=== PATIENT | male | born 1985 | race Caucasian/White ===

== ENCOUNTER → 2017-02-05 | Outpatient (CLI) | payer OTHER ==
[2017-02-05 08:15] LABS: ALT 36 U/L (21-72); AST 22 U/L (17-59); Alkaline Phosphatase 47 U/L (38-126); Anion Gap 9 mmol/L; Blood Urea Nitrogen 14 mg/dL (9-20); Calcium 8.8 mg/dL (8.4-10.2); Carbon Dioxide 28 mmol/L (22-30); Chloride 104 mmol/L (98-107); Cholesterol 142 mg/dL (<200); Glucose 168 mg/dL (74-99); HDL Cholesterol 44 mg/dL (40-60); Non-African American GFR(MDRD) >60 (>60 ml/min/1.73 sqM); Potassium 4.5 mmol/L (3.5-5.1); Sodium 141 mmol/L (137-145); Total Bilirubin 1.8 mg/dL (0.2-1.3); Total Protein 6.6 g/dL (6.3-8.2); Triglycerides 68 mg/dL (<150)
[2017-02-05 15:56] LABS: Urine Creatinine 94.9 mg/dL
== END | disposition home or self-care (01) ==
LOC: LABWHC1 07:25
PROVIDERS: ATTEND Internal Medicine Endocrinology, Diabetes & Metabolism
DX: E10.65 Type 1 diabetes mellitus with hyperglycemia (principal)
CPT/HCPCS: 36415; 80053; 80061; 82043; 82570

== ENCOUNTER → 2017-05-26 | Outpatient (CLI) | payer OTHER ==
[2017-05-26 08:25] LABS: ALT 41 U/L (21-72); AST 25 U/L (17-59); Alkaline Phosphatase 57 U/L (38-126); Anion Gap 9 mmol/L; Blood Urea Nitrogen 15 mg/dL (9-20); Carbon Dioxide 26 mmol/L (22-30); Chloride 104 mmol/L (98-107); Cholesterol 139 mg/dL (<200); Glucose 287 mg/dL (74-99); HDL Cholesterol 47 mg/dL (40-60); Non-African American GFR(MDRD) >60 (>60 ml/min/1.73 sqM); Potassium 5.3 mmol/L (3.5-5.1); Sodium 139 mmol/L (137-145); Total Bilirubin 1.7 mg/dL (0.2-1.3); Total Protein 6.8 g/dL (6.3-8.2)
[2017-05-26 12:03] LABS: Hemoglobin A1C 7.6 % (4.2-6.1)
[2017-05-26 16:12] LABS: Urine Creatinine 66.3 mg/dL
== END | disposition home or self-care (01) ==
LOC: LABWHC1 07:41
PROVIDERS: ATTEND Internal Medicine Endocrinology, Diabetes & Metabolism
DX: E55.9 Vitamin D deficiency, unspecified (principal); E53.9 Vitamin B deficiency, unspecified; E10.65 Type 1 diabetes mellitus with hyperglycemia
CPT/HCPCS: 36415; 80053; 80061; 82043; 82306; 82570; 82607; 83036

== ENCOUNTER → 2017-08-19 | Outpatient (CLI) | payer OTHER ==
--- NOTE | 2017-08-19 13:02 | XR ---
EXAMINATION TYPE: XR KUB DATE OF EXAM: 08/19/2017 9:29 AM CLINICAL HISTORY: Kidney calculus per order. Left-sided flank pain per patient. TECHNIQUE: Two Upright KUB images of the abdomen are obtained. COMPARISON: Complete abdominal ultrasound August 04, 2017. FINDINGS: Scattered gas is seen in non-distended small bowel loops. Gas and fecal material is seen in non-distended colon. There is no visceromegaly, pneumoperitoneum, or abnormal calcification apprecia shaun. The lung bases are clear and the osseous structures are intact. IMPRESSION: No definite nephrolithiasis to correlate with recent ultrasound .
== END | disposition home or self-care (01) ==
LOC: RADXRMAIN 09:03
PROVIDERS: ATTEND Urology
DX: N20.0 Calculus of kidney (principal)
CPT/HCPCS: 74018

== ENCOUNTER → 2017-09-01 | Outpatient (CLI) | payer OTHER ==
--- NOTE | 2017-09-01 10:06 | CT ---
EXAMINATION TYPE: CT abdomen pelvis wo con DATE OF EXAM: 09/01/2017 HISTORY: calculus of kidney per order. CT DLP: 539.10 mGycm. Automated Exposure Control for Dose Reduction was Utilized. TECHNIQUE: CT scan of the abdomen and pelvis is performed without oral or IV contrast. COMPARISON: Complete abdominal ultrasound August 04, 2017. KUB x-ray August 19, 2017. FINDINGS: Within the limitations of a non-contrast study, the following observations are made. LUNG BASES: No significant abnormality is appreciated. LIVER/GB: There are several small dependent gallstones or gallbladder sludge on CT less well seen on ultrasound images saved. PANCREAS: No significant abnormality is seen. SPLEEN: Spleen is not enlarged on CT images to correlate with ultrasound. ADRENALS: No significant abnormality is seen. KIDNEYS: No renal calculus is identified in either kidney with particular attention to mid pole left kidney at area of ultrasound concern. No intraluminal calculus in the bladder is seen. BOWEL: Normal-appearing appendix right lower quadrant from cecum is incidentally seen. There is promi nence of fecal material in the distal sigmoid colon and rectum. There is no suspicious small or large bowel dilatation. GENITAL ORGANS: No gross abnormality seen. LYMPH NODES: No greater than 1cm abdominal or pelvic lymph nodes are appreciated. OSSEOUS STRUCTURES: There are bilateral pars defects L5 level without significant spondylolisthesis. OTHER: No significant additional abnormality is seen. IMPRESSION: 1. No renal stones or hydronephrosis is seen bilaterally to account for recent ultrasound findings. 2. Incidental small gallstones and/or gallbladder sludge without CT evidence for acute cholecystitis. 3. Incidental bilateral pars defects L5 level without spondylolisthesis. 4. Incidental moderate rectal fecal stasis without bowel obstruction. 5. No splenomegaly currently.
== END | disposition home or self-care (01) ==
LOC: RADCTMAIN 08:37
PROVIDERS: ATTEND Urology
DX: N20.0 Calculus of kidney (principal); Z88.0 Allergy status to penicillin
CPT/HCPCS: 74176

== ENCOUNTER → 2017-09-20 | Outpatient (CLI) | payer OTHER ==
[2017-09-20 07:59] LABS: Basophils % (A) 1 %; Eosinophils # (A) 0.2 k/uL (0-0.7); Eosinophils % (A) 3 %; HCT 48.6 % (39.0-53.0); HGB 15.7 gm/dL (13.0-17.5); Lymphocytes # (A) 1.7 k/uL (1.0-4.8); Lymphocytes % (A) 31 %; MCH 28.6 pg (25.0-35.0); MCHC 32.2 g/dL (31.0-37.0); MCV 88.8 fL (80.0-100.0); Monocytes # (A) 0.4 k/uL (0-1.0); Monocytes % (A) 7 %; Neutrophils # (A) 3.1 k/uL (1.3-7.7); Neutrophils % (A) 56 %; Platelet Count 184 k/uL (150-450); RBC 5.48 m/uL (4.30-5.90); RDW 12.7 % (11.5-15.5); WBC 5.5 k/uL (3.8-10.6)
[2017-09-20 08:22] LABS: ALT 28 U/L (21-72); AST 19 U/L (17-59); Alkaline Phosphatase 44 U/L (38-126); Anion Gap 11 mmol/L; Blood Urea Nitrogen 14 mg/dL (9-20); Carbon Dioxide 28 mmol/L (22-30); Chloride 104 mmol/L (98-107); Cholesterol 145 mg/dL (<200); Glucose 244 mg/dL (74-99); HDL Cholesterol 44 mg/dL (40-60); LDL Cholesterol,Calculated 87 mg/dL (0-99); Potassium 4.5 mmol/L (3.5-5.1); Sodium 143 mmol/L (137-145); Total Bilirubin 1.7 mg/dL (0.2-1.3); Total Protein 6.4 g/dL (6.3-8.2); Triglycerides 68 mg/dL (<150)
[2017-09-20 08:37] LABS: T4, Free (Free Thyroxine) 1.22 ng/dL (0.78-2.19)
[2017-09-20 13:09] LABS: Hemoglobin A1C 8.2 % (4.0-6.0)
== END | disposition home or self-care (01) ==
LOC: LABWHC1 07:39
PROVIDERS: ATTEND Internal Medicine Geriatric Medicine
DX: Z00.00 Encounter for general adult medical examination without abnormal findings (principal); K21.9 Gastro-esophageal reflux disease without esophagitis; E08.65 Diabetes mellitus due to underlying condition with hyperglycemia; E78.5 Hyperlipidemia, unspecified; E03.9 Hypothyroidism, unspecified
CPT/HCPCS: 36415; 80053; 80061; 82306; 83036; 84439; 84443; 85025

== ENCOUNTER → 2017-12-23 | Outpatient (CLI) | payer OTHER ==
[2017-12-23 08:19] LABS: Basophils % (A) 1 %; Eosinophils # (A) 0.2 k/uL (0-0.7); Eosinophils % (A) 3 %; HCT 47.2 % (39.0-53.0); HGB 15.8 gm/dL (13.0-17.5); Lymphocytes % (A) 35 %; MCH 28.6 pg (25.0-35.0); MCHC 33.4 g/dL (31.0-37.0); MCV 85.5 fL (80.0-100.0); Mean Platelet Volume 6.9; Monocytes # (A) 0.5 k/uL (0-1.0); Monocytes % (A) 8 %; Neutrophils # (A) 2.9 k/uL (1.3-7.7); Neutrophils % (A) 50 %; Platelet Count 180 k/uL (150-450); RBC 5.52 m/uL (4.30-5.90); RDW 13.2 % (11.5-15.5); WBC 5.8 k/uL (3.8-10.6)
[2017-12-23 08:43] LABS: ALT 45 U/L (21-72); AST 38 U/L (17-59); Albumin 4.4 g/dL (3.5-5.0); Alkaline Phosphatase 42 U/L (38-126); Anion Gap 13 mmol/L; Blood Urea Nitrogen 18 mg/dL (9-20); Calcium 9.1 mg/dL (8.4-10.2); Carbon Dioxide 25 mmol/L (22-30); Chloride 104 mmol/L (98-107); Cholesterol 145 mg/dL (<200); Glucose 168 mg/dL (74-99); HDL Cholesterol 39 mg/dL (40-60); LDL Cholesterol,Calculated 94 mg/dL (0-99); Potassium 4.9 mmol/L (3.5-5.1); Sodium 142 mmol/L (137-145); Total Bilirubin 1.2 mg/dL (0.2-1.3); Total Protein 6.6 g/dL (6.3-8.2); Triglycerides 62 mg/dL (<150)
[2017-12-23 16:14] LABS: Iron Saturation 18.65 (15.00-50.00)
[2017-12-23 18:37] LABS: Hemoglobin A1C 7.7 % (4.0-6.0)
== END ==
LOC: LABWHC1 07:38
PROVIDERS: ATTEND Internal Medicine Geriatric Medicine
DX: E78.5 Hyperlipidemia, unspecified (principal); E03.9 Hypothyroidism, unspecified; D64.9 Anemia, unspecified; E08.65 Diabetes mellitus due to underlying condition with hyperglycemia
CPT/HCPCS: 36415; 80053; 80061; 83036; 83540; 83550; 84439; 84443; 85025

== ENCOUNTER 2018-01-16 07:55 | Inpatient (IN) | payer OTHER ==
[2018-01-16] MEDS ORDERED: FAMOTIDINE 20 MG/2 ML VIAL IV STA (08:10)
[2018-01-16] MEDS ORDERED: ONDANSETRON 4 MG/2 ML VIAL IVP STA (08:10)
[2018-01-16] MEDS ORDERED: SODIUM CHLORIDE 0.9% 1,000 ML IV STA ×2 (08:10→08:14)
[2018-01-16 08:17] LABS: Glucose,Whole Blood >600 mg/dL (75-99)
--- NOTE | 2018-01-16 08:21 | ED ---
General Adult HPI - General Source: patient, RN notes reviewed Mode of arrival: ambulatory Limitations: no limitations <Daniele Andujar - Last Filed: 01/16/18 10:12> <Juan Sidhu - Last Filed: 01/16/18 10:23> - General Chief complaint: Nausea/Vomiting/Diarrhea Stated complaint: Vomiting Time Seen by Provider: 01/16/18 08:09 - History of Present Illness Initial comments: 33-year-old male who is a type I diabetic, presented to the emergency room today with a chief complaint of symptoms of nausea, vomiting that started yesterday at 10 AM. He states symptoms continued throughout the day and have continued this morning with episodes of vomiting. No signs of blood in the emesis. Patient does admit that he is very thirsty. He started to drink water , Pedialyte, Gatorade. Patient does admit to some abdominal cramping throughout abdomen no specific pain. Patient states she's never had symptoms similar to this in the past. He denies any other complaints. Patient denies any recent fever, chills, shortness of breath, chest pain, numbness or tingling , dysuria or hematuria, constipation or diarrhea, headaches or visual changes, or any other complaints. (Daniele Andujar) - Related Data Allergies Allergy/AdvReac Type Severity Reaction Status Date / Time cefaclor [From Ceclor] Allergy Unknown Verified 01/16/18 08:05 Childhood peanut Allergy Anaphylaxis Verified 01/16/18 08:05 Penicillins Allergy Unknown Verified 01/16/18 08:05 Childhood Review of Systems ROS Other: All systems not noted in ROS Statement are negative. <Daniele Andujar - Last Filed: 01/16/18 10:12> ROS Other: All systems not noted in ROS Statement are negative. <Juan Sidhu - Last Filed: 01/16/18 10:23> ROS Statement: Those systems with pertinent positive or pertinent negative responses have been documented in the HPI. Past Medical History Past Medical History: Diabetes Mellitus Additional Past Medical History / Comment(s): Type 1 DM, insulin pump History of Any Multi-Drug Resistant Organisms: None Reported Past Surgical History: No Surgical Hx Reported Past Psychological History: No Psychological Hx Reported Smoking Status: Former smoker Past Alcohol Use History: None Reported Past Drug Use History: None Reported <Daniele Andujar - Last Filed: 01/16/18 10:12> General Exam Limitations: no limitations <Daniele Andujar - Last Filed: 01/16/18 10:12> <Juan Sidhu - Last Filed: 01/16/18 10:23> - General Exam Comments Initial Comments: General: The patient is awake and alert, in mild distress. Eye: Pupils are equal, round and reactive to light, extra-ocular movements are intact. No nystagmus. There is normal conjunctiva bilaterally. No signs of icterus. Ears, nose, mouth and throat: There are moist mucous membranes and no oral lesions. Neck: The neck is supple, there is no tenderness or JVD. Cardiovascular: There is a regular rate and rhythm. No murmur, rub or gallop is appreciated. Respiratory: Lungs are clear to auscultation, respirations are non-labored, breath sounds are equal. No wheezes, stridor, rales, or rhonchi. Gastrointestinal: Soft, non-distended, non-tender abdomen without masses or organomegaly noted. There is no rebound or guarding present. No CVA tenderness. Musculoskeletal: Normal ROM, no tenderness. Strength 5/5. Sensation intact. Pulses equal bilaterally 2+. Neurological: A&O x 3. CN II-XII intact, There are no obvious motor or sensory deficits. Coordination appears grossly intact. Speech is normal. Skin: Skin is warm and dry and no rashes or lesions are noted. Psychiatric: Cooperative, appropriate mood & affect, normal judgment. (Daniele Andujar) Course <Daniele Andujar - Last Filed: 01/16/18 10:12> <Juan Sidhu - Last Filed: 01/16/18 10:23> Vital Signs 01/16/18 01/16/18 01/16/18 07:58 08:23 08:35 Temperature 96.9 F L Pulse Rate 132 H 122 H Respiratory 24 20 Rate Blood Pressure 94/61 93/47 O2 Sat by Pulse 95 96 Oximetry 01/16/18 01/16/18 01/16/18 09:37 09:44 09:45 Temperature Pulse Rate 121 H 122 H 126 H Respiratory 24 Rate Blood Pressure 93/47 O2 Sat by Pulse 100 Oximetry 01/16/18 10:00 Temperature 97.1 F L Pulse Rate 124 H Respiratory 15 Rate Blood Pressure 103/51 O2 Sat by Pulse 100 Oximetry - Reevaluation(s) Reevaluation #1: 01/16/18 09:25 Patient's labs been reviewed does show 37 white count. Patient's potassium 7.2. Acetone positive. Patient's bicarb less than 5. Patient's glucose 1023. Patient's BUN/creatinine elevated at 35 and 3.54 respectively. Patient has been started on a 2 L bolus here the emergency room currently through first liter at this time. Patient given 10 units of IV insulin and started on insulin drip. Patient be given breathing treatment of albuterol along with amp of bicarbonate. 01/16/18 10:12 Discussed and seen by attending physician Dr. Sidhu who did discuss case with admitting physician Dr. Roberts and Dr. Zhu for ICU admit. (Daniele Andujar) Reevaluation #2: 01/16/18 09:49 I did personally evaluate the patient with a [id number] evaluation and did discuss findings with him and his family. I have evidence of DKA with acute renal failure hyperkalemia he does demonstrate some tachypnea. He is tachycardic. (Juan Sidhu) Reevaluation #3: 01/16/18 10:14 I did discuss case with Dr. Roberts patient will be admitted to intensive care ( Juan Sidhu) Reevaluation #4: 01/16/18 10:14 I did discuss case with Dr. Zhu will be consulted for intensive care management (Juan Sidhu) Reevaluation #5: 01/16/18 10:21 Reevaluation the patient he is feeling improved at this time he still tachycardic but less so still tachypnic but improved (Juan Sidhu) EKG Findings - EKG Comments: EKG Findings:: EKG performed at 904: Shows sinus tachycardia at 139 bpm. HI interval is 150. QRS 110. QT/QTC 334/508. shows peaked T waves. <Daniele Andujar - Last Filed: 01/16/18 10:12> Medical Decision Making - Lab Data Result diagrams: 01/16/18 08:33 01/16/18 08:33 <Daniele Andujar - Last Filed: 01/16/18 10:12> - Lab Data Result diagrams: 01/16/18 08:33 01/16/18 08:33 <Juan Sidhu - Last Filed: 01/16/18 10:23> - Lab Data Lab Results 01/16/18 01/16/18 01/16/18 Range/Units 08:15 08:33 08:33 WBC 37.5 H* (3.8-10.6) k/uL RBC 5.78 (4.30-5.90) m/uL Hgb 16.9 (13.0-17.5) gm/dL Hct 55.8 H (39.0-53.0) % MCV 96.5 D (80.0-100.0) fL MCH 29.3 (25.0-35.0) pg MCHC 30.3 L (31.0-37.0) g/dL RDW 13.0 (11.5-15.5) % Plt Count 366 D (150-450) k/uL Neutrophils % 83 % Lymphocytes % 7 % Monocytes % 9 % Eosinophils % 0 % Basophils % 0 % Neutrophils # 31.1 H (1.3-7.7) k/uL Lymphocytes # 2.7 (1.0-4.8) k/uL Monocytes # 3.3 H (0-1.0) k/uL Eosinophils # 0.1 (0-0.7) k/uL Basophils # 0.1 (0-0.2) k/uL Manual Slide Review Performed Toxic Granulation Present Hypochromasia Marked Sodium 133 L (137-145) mmol/L Potassium 7.2 H* (3.5-5.1) mmol/L Chloride 88 L (98-107) mmol/L Carbon Dioxide <5 L* (22-30) mmol/L Anion Gap mmol/L BUN 35 H (9-20) mg/dL Creatinine 3.54 H (0.66-1.25) mg/dL Est GFR (CKD-EPI)AfAm 24 (>60 ml/min/1.73 sqM) Est GFR (CKD-EPI)NonAf 21 (>60 ml/min/1.73 sqM) Glucose 1023 H* (74-99) mg/dL POC Glucose (mg/dL) >600 H (75-99) mg/dL POC Glu Geospatial Engineer ID [employer], Ignacia Calcium 9.5 (8.4-10.2) mg/dL Total Bilirubin 2.0 H (0.2-1.3) mg/dL AST 28 (17-59) U/L ALT 37 (21-72) U/L Alkaline Phosphatase 96 (38-126) U/L Total Protein 7.1 (6.3-8.2) g/dL Albumin 5.3 H (3.5-5.0) g/dL Amylase 75 (30-110) U/L Lipase 270 (23-300) U/L Acetone, Qual Positive (Negative) 01/16/18 01/16/18 Range/Units 09:24 10:03 WBC (3.8-10.6) k/uL RBC (4.30-5.90) m/uL Hgb (13.0-17.5) gm/dL Hct (39.0-53.0) % MCV (80.0-100.0) fL MCH (25.0-35.0) pg MCHC (31.0-37.0) g/dL RDW (11.5-15.5) % Plt Count (150-450) k/uL Neutrophils % % Lymphocytes % % Monocytes % % Eosinophils % % Basophils % % Neutrophils # (1.3-7.7) k/uL Lymphocytes # (1.0-4.8) k/uL Monocytes # (0-1.0) k/uL Eosinophils # (0-0.7) k/uL Basophils # (0-0.2) k/uL Manual Slide Review Toxic Granulation Hypochromasia Sodium (137-145) mmol/L Potassium (3.5-5.1) mmol/L Chloride (98-107) mmol/L Carbon Dioxide (22-30) mmol/L Anion Gap mmol/L BUN (9-20) mg/dL Creatinine (0.66-1.25) mg/dL Est GFR (CKD-EPI)AfAm (>60 ml/min/1.73 sqM) Est GFR (CKD-EPI)NonAf (>60 ml/min/1.73 sqM) Glucose (74-99) mg/dL POC Glucose (mg/dL) >600 H >600 H (75-99) mg/dL POC Glu Geospatial Engineer ID Calcium (8.4-10.2) mg/dL Total Bilirubin (0.2-1.3) mg/dL AST (17-59) U/L ALT (21-72) U/L Alkaline Phosphatase (38-126) U/L Total Protein (6.3-8.2) g/dL Albumin (3.5-5.0) g/dL Amylase (30-110) U/L Lipase (23-300) U/L Acetone, Qual (Negative) Critical Care Time <Daniele Andujar - Last Filed: 01/16/18 10:12> Critical Care Time: Yes <Juan Sidhu - Last Filed: 01/16/18 10:23> Critical Care Time: 31 minutes of critical care time which does not include PA time this includes a [id number] evaluation with history and physical. Discussion with the patient and family members on multiple occasions regarding findings discussion with the admitting physician discussion with the senior process control tech. Review of orders. Multiple reevaluation of the patient to responsive therapy. (Juan Sidhu) Disposition Is patient prescribed a controlled substance at d/c from ED?: No Time of Disposition: 09:32 <Daniele Andujar - Last Filed: 01/16/18 10:12> <Juan Sidhu Last Filed: 01/16/18 10:23> Clinical Impression: DKA (diabetic ketoacidoses), Acute renal injury, Hyperkalemia, Leukocytosis, Dehydration Disposition: ADMITTED IP TO THIS HOSP Condition: Serious Referrals: Jacobo Correa MD [Primary Care Provider] - 1-2 days
[2018-01-16 08:59] LABS: ALT 37 U/L (21-72); AST 28 U/L (17-59); Albumin 5.3 g/dL (3.5-5.0); Alkaline Phosphatase 96 U/L (38-126); Amylase 75 U/L (30-110); Blood Urea Nitrogen 35 mg/dL (9-20); Calcium 9.5 mg/dL (8.4-10.2); Chloride 88 mmol/L (98-107); Lipase 270 U/L (23-300); Sodium 133 mmol/L (137-145); Total Protein 7.1 g/dL (6.3-8.2)
[2018-01-16 09:04] LABS: Basophils # (A) 0.1 k/uL (0-0.2); Basophils % (A) 0 %; Eosinophils # (A) 0.1 k/uL (0-0.7); Eosinophils % (A) 0 %; HGB 16.9 gm/dL (13.0-17.5); Hypochromasia Marked; Lymphocytes # (A) 2.7 k/uL (1.0-4.8); Lymphocytes % (A) 7 %; MCH 29.3 pg (25.0-35.0); MCHC 30.3 g/dL (31.0-37.0); Monocytes # (A) 3.3 k/uL (0-1.0); Monocytes % (A) 9 %; Neutrophils # (A) 31.1 k/uL (1.3-7.7); Neutrophils % (A) 83 %; RBC 5.78 m/uL (4.30-5.90)
[2018-01-16 09:05] LABS: HCT 55.8 % (39.0-53.0); MCV 96.5 fL (80.0-100.0); WBC 37.5 k/uL (3.8-10.6)
[2018-01-16 09:06] LABS: Platelet Count 366 k/uL (150-450)
[2018-01-16 09:18] LABS: Glucose 1023 mg/dL (74-99)
[2018-01-16 09:19] LABS: Potassium 7.2 mmol/L (3.5-5.1)
[2018-01-16] MEDS: INSULIN REGULAR 100 UNIT in SODIUM CHLORIDE 0.9% 100 ML IV SCH ×2 (09:19→19:02)
[2018-01-16 09:20] LABS: Carbon Dioxide <5 mmol/L (22-30)
[2018-01-16] MEDS ORDERED: ALBUTEROL NEBULIZED 2.5 MG/3 ML INHALATION STA (09:21)
[2018-01-16] MEDS ORDERED: SODIUM BICARB 8.4% 50 ML SYR (1 MEQ/ML) IV ONE (09:21)
[2018-01-16] MEDS ORDERED: INSULIN REGULAR 100 UNIT/ML VIAL IV ONE (09:23)
[2018-01-16 09:30] LABS: Glucose,Whole Blood >600 mg/dL (75-99)
[2018-01-16 09:38] LABS: Toxic Granulation Present
--- NOTE | 2018-01-16 09:59 | XR ---
EXAMINATION: XR chest 1V portable DATE AND TIME: 01/16/2018 9:48 AM ORDERING PROVIDER: Daniele Andujar CLINICAL INDICATION: Pain TECHNIQUE: AP upright portable COMPARISON: None. DESCRIPTION: The lungs are clear. The pleural spaces are negative. The cardiac silhouette is not enlarged. The mediastinal and pleural silhouettes are unremarkable. The skeletal structures are intact without focal findings. The soft tissues are unremarkable. IMPRESSION: NO ACUTE PROCESS.
[2018-01-16] MEDS: SODIUM CHLORIDE 0.9% 1,000 ML IV SCH ×2 (10:10→14:08)
[2018-01-16] MEDS ORDERED: NALOXONE 0.4 MG/ML 1 ML VIAL IV PRN (10:13)
[2018-01-16 10:17] LABS: Glucose,Whole Blood >600 mg/dL (75-99)
[2018-01-16 11:12] LABS: Glucose,Whole Blood >600 mg/dL (75-99)
[2018-01-16 11:37] LABS: Appearance,Urine Clear (Clear); Bilirubin,Urine Negative (Negative); Blood,Urine Moderate (Negative); Color,Urine Light Yellow; Glucose,Urine (UA) 4+ (Negative); Leukocyte Esterase,Urine Negative (Negative); Mucus,Urine Rare /hpf; Nitrite,Urine Negative (Negative); Protein,Urine Trace (Negative); Specific Gravity,Urine 1.016 (1.001-1.035); Urobilinogen,Urine <2.0 mg/dL (<2.0); WBC,Urine 11 /hpf (0-5)
[2018-01-16 11:44] LABS: Ketones,Urine 3+ (Negative)
[2018-01-16 12:10] LABS: Glucose,Whole Blood >600 mg/dL (75-99)
[2018-01-16 12:44] LABS: Potassium 4.5 mmol/L (3.5-5.1)
[2018-01-16 13:15] LABS: Glucose,Whole Blood 515 mg/dL (75-99)
[2018-01-16 13:35] LABS: Glucose,Whole Blood 581 mg/dL (75-99)
[2018-01-16] MEDS ORDERED: ONDANSETRON 4 MG/2 ML VIAL IVP PRN (13:45)
--- NOTE | 2018-01-16 13:55 | P.CNPUL ---
History of Present Illness Consult date: 01/16/18 Reason for consult: other (Acute diabetic ketoacidosis) Chief complaint: Nausea vomiting abdominal pain History of present illness: This is a 33-year-old white male with history of type 1 diabetes, on insulin pump for the last 2 years. History of stable bronchial asthma, not requiring any treatment for the last few years. Patient presented to the ER with 1 day history of nausea vomiting, and abdominal cramps. Patient couldn't hold anything down, no diarrhea, no fever, no chills, no headache, no blurred vision , no dizziness. Patient was having also symptoms of excessive first. Upon workup in the ER he was found to have significantly elevated blood sugar, 636, and he was also found to have positive ketones in the urine, significantly elevated anion gap metabolic acidosis, bicarb of 7, BUN of 37 creatinine of 2.20. Patient was started on the diabetic ketoacidosis protocol, admitted to the ICU, and I saw him on consultation. Patient denies any headaches, no blurred vision, no dizziness, no cough no wheezing no fever no chills no hemoptysis no chest pain. His symptoms are mostly GI related, denies any dysuria frequency or urgency. Patient denies noncompliance with his insulin. However the insulin pump was discontinued upon admission. Review of Systems 14 point review of systems were obtained, please refer to pertinent positives and negatives as per HPI. Past Medical History Past Medical History: Asthma, Diabetes Mellitus Additional Past Medical History / Comment(s): Type 1 DM, insulin pump History of Any Multi-Drug Resistant Organisms: None Reported Past Surgical History: No Surgical Hx Reported Past Psychological History: No Psychological Hx Reported Smoking Status: Former smoker Past Alcohol Use History: None Reported Past Drug Use History: None Reported Medications and Allergies Home Medications Medication Instructions Recorded Confirmed Type Cholecalciferol [Vitamin D3] 5,000 unit PO CEDILLO 01/16/18 01/16/18 History Ferrous Sulfate [Feosol] 325 mg PO DAILY 01/16/18 01/16/18 History Gabapentin [Neurontin] 300 mg PO BID 01/16/18 01/16/18 History Insulin Aspart (For Pump) [NovoLOG 0.01 unit SQ-PUMP CONTINUOUS 01/16/18 History (For Pump)] Multivitamins, Thera [Multivitamin 1 tab PO DAILY 01/16/18 01/16/18 History (formulary)] Omeprazole [PriLOSEC] 20 mg PO AC-BRKFST 01/16/18 01/16/18 History Allergies Allergy/AdvReac Type Severity Reaction Status Date / Time [facility] [[facility]] Allergy Unknown Verified 01/16/18 11:19 Childhood peanut Allergy Anaphylaxis Verified 01/16/18 11:19 Penicillins Allergy Unknown Verified 01/16/18 11:19 Childhood Physical Exam Vitals: Vital Signs Temp Pulse Resp BP Pulse Ox 01/16/18 13:09 98.1 F 121 H 18 111/57 100 01/16/18 12:00 96.9 F L 120 H 14 105/55 100 01/16/18 11:00 97.0 F L 120 H 20 105/55 100 01/16/18 10:25 125 H 20 102/53 100 01/16/18 10:00 97.1 F L 124 H 15 103/51 100 01/16/18 09:45 126 H 24 93/47 100 01/16/18 09:44 122 H 01/16/18 09:37 121 H 01/16/18 08:35 122 H 20 93/47 96 01/16/18 08:23 96.9 F L 01/16/18 07:58 132 H 24 94/61 95 Intake and Output 01/15/18 01/16/18 01/16/18 22:59 06:59 14:59 Output Total 600 Balance -600 Output: Urine 600 Other: Voiding Method Toilet Weight 90.718 kg Physical Exam: Revealed a 33-year-old white male, very pleasant, in no distress. Head: Atraumatic, normocephalic. HEENT:[Neck is supple.] [No neck masses.] [No thyromegaly.] [No JVD.] PERRLA, EOMI, dry mucous membranes. No icterus. Chest: [Clear throughout, no crackles, no rhonchi, no wheezes.] Cardiac Exam: [Normal S1 and S2, no S3 gallop, no murmur.] Abdomen: [Soft, nontender, no megaly, no rebound, no guarding, normal bowel sounds.] Extremities: [No clubbing, no edema, no cyanosis.] Neurological Exam: [No focal neurologic deficit.] Psychiatric: Normal mood affect and mental status examination. Lymphatics: No lymphadenopathy. Musculoskeletal: Normal range of motion, no deformities. Results - Laboratory Findings CBC and BMP: 01/16/18 08:33 01/16/18 12:17 Abnormal lab findings: Abnormal Labs 01/16/18 01/16/18 01/16/18 08:15 08:33 08:33 WBC 37.5 H* Hct 55.8 H MCHC 30.3 L Neutrophils # 31.1 H Monocytes # 3.3 H Sodium 133 L Potassium 7.2 H* Chloride 88 L Carbon Dioxide <5 L* BUN 35 H Creatinine 3.54 H Glucose 1023 H* POC Glucose (mg/dL) >600 H Phosphorus Total Bilirubin 2.0 H Albumin 5.3 H Urine Protein Urine Glucose (UA) Urine Ketones Urine Blood Urine WBC Urine Mucus 01/16/18 01/16/18 01/16/18 09:24 10:03 11:06 WBC Hct MCHC Neutrophils # Monocytes # Sodium Potassium Chloride Carbon Dioxide BUN Creatinine Glucose POC Glucose (mg/dL) >600 H >600 H >600 H Phosphorus Total Bilirubin Albumin Urine Protein Urine Glucose (UA) Urine Ketones Urine Blood Urine WBC Urine Mucus 01/16/18 01/16/18 01/16/18 11:25 12:05 12:17 WBC Hct MCHC Neutrophils # Monocytes # Sodium Potassium Chloride Carbon Dioxide 7 L* BUN 37 H Creatinine 2.20 H Glucose 636 H* POC Glucose (mg/dL) >600 H Phosphorus 2.0 L Total Bilirubin Albumin Urine Protein Trace H Urine Glucose (UA) 4+ H Urine Ketones 3+ H Urine Blood Moderate H Urine WBC 11 H Urine Mucus Rare H 01/16/18 01/16/18 13:08 13:33 WBC Hct MCHC Neutrophils # Monocytes # Sodium Potassium Chloride Carbon Dioxide BUN Creatinine Glucose POC Glucose (mg/dL) 515 H 581 H Phosphorus Total Bilirubin Albumin Urine Protein Urine Glucose (UA) Urine Ketones Urine Blood Urine WBC Urine Mucus - Diagnostic Findings Chest x-ray: image reviewed (No evidence of active disease) Assessment and Plan Assessment: Impression: 1 acute diabetic ketoacidosis, 2 acute dehydration and prerenal azotemia. 3 diabetes type 1, patient has been very compliant with his meds and insulin. 4 mild stable asthma not requiring any treatment. 5 reactive leukocytosis, no clear-cut evidence of true infection. No documented fever. Recommendation: Continue present supportive care measures, IV fluids, and diabetic ketoacidosis protocol. We'll continue to follow while in the intensive care unit. Time with Patient: Greater than 30
--- NOTE | 2018-01-16 14:53 | P.NPCON ---
History of Present Illness - Reason for Consult acute renal failure - Chief Complaint Diabetic ketoacidosis with acute kidney injury and hyperkalemia - History of Present Illness This is a 33-year-old male seen in consultation because of acute kidney injury, hyperkalemia and diabetic ketoacidosis. He is known with diabetes for the last 3 years on insulin pump and well controlled blood sugar. Yesterday he became L with nausea vomiting and blood sugar been top and he was admitted with hyperglycemia with blood sugar greater than 600, potassium of 7.2 sodium 133 and a creatinine of 3.54. Serum acetone was positive, urine ketone is positive proteins trace. He has been given IV fluids and insulin drip and has improved potassium is coming down to 4.5. Bicarb still low and anion gap still high. Is already feeling better. Vomiting has gone down significantly. Note had any blood in the vomitus there was mucoid. There was no diarrhea no fever chills no shortness of breath chest pain. Past Medical History Past Medical History: Asthma, Diabetes Mellitus Additional Past Medical History / Comment(s): Type 1 DM, insulin pump History of Any Multi-Drug Resistant Organisms: None Reported Past Surgical History: No Surgical Hx Reported Past Anesthesia/Blood Transfusion Reactions: No Reported Reaction Past Psychological History: No Psychological Hx Reported Smoking Status: Former smoker Past Alcohol Use History: None Reported Past Drug Use History: None Reported - Past Family History Mother Family Medical History: No Reported History Father Family Medical History: No Reported History Medications and Allergies Home Medications Medication Instructions Recorded Confirmed Type Cholecalciferol [Vitamin D3] 5,000 unit PO CEDILLO 01/16/18 01/16/18 History Ferrous Sulfate [Feosol] 325 mg PO DAILY 01/16/18 01/16/18 History Gabapentin [Neurontin] 300 mg PO BID 01/16/18 01/16/18 History Insulin Aspart (For Pump) [NovoLOG 0.01 unit SQ-PUMP CONTINUOUS 01/16/18 History (For Pump)] Multivitamins, Thera [Multivitamin 1 tab PO DAILY 01/16/18 01/16/18 History (formulary)] Omeprazole [PriLOSEC] 20 mg PO AC-BRKFST 01/16/18 01/16/18 History Allergies Allergy/AdvReac Type Severity Reaction Status Date / Time cefaclor [From [facility]] Allergy Unknown Verified 01/16/18 11:19 Childhood peanut Allergy Anaphylaxis Verified 01/16/18 11:19 Penicillins Allergy Unknown Verified 01/16/18 11:19 Childhood Physical Exam Vitals: Vital Signs Temp Pulse Pulse Resp BP BP Pulse Ox 01/16/18 14:00 111/60 98 01/16/18 13:50 113 H 24 111/60 100 01/16/18 13:40 110 H 22 106/59 100 01/16/18 13:32 97.7 F 114 H 13 100 01/16/18 13:09 98.1 F 121 H 18 111/57 100 01/16/18 12:41 97.7 F 114 H 18 111/60 100 01/16/18 12:00 96.9 F L 120 H 14 105/55 100 01/16/18 11:00 97.0 F L 120 H 20 105/55 100 01/16/18 10:25 125 H 20 102/53 100 01/16/18 10:00 97.1 F L 124 H 15 103/51 100 01/16/18 09:45 126 H 24 93/47 100 01/16/18 09:44 122 H 01/16/18 09:37 121 H 01/16/18 08:35 122 H 20 93/47 96 01/16/18 08:23 96.9 F L 01/16/18 07:58 132 H 24 94/61 95 Intake and Output 01/15/18 01/16/18 01/16/18 22:59 06:59 14:59 Intake Total 200 Output Total 600 Balance -400 Intake: IV 200 Sodium Chloride 0.9% 1, 200 000 ml @ 200 mls/hr IV . Q5H ON LICENSE OF [facility] Rx#:[id number] Output: Urine 600 Other: Voiding Method Toilet # Voids 1 Weight 89 kg On examination is awake alert oriented comfortable HEENT exam no JVP lymphadenopathy thyromegaly neck is supple no facial asymmetry pupils are equal Lungs are clear to auscultation percussion good air entry bilaterally Heart sounds are unremarkable no murmur rub gallop Abdomen soft nontender no organomegaly ascites masses is somewhat obese Extremity exam was no edema Warm to touch Neurologically awake alert oriented. Results - Lab Results Most recent lab results Calcium 9.5 mg/dL (8.4-10.2) 01/16/18 08:33 Phosphorus 2.0 mg/dL (2.5-4.5) L 01/16/18 12:17 01/16/18 08:33 01/16/18 12:17 Assessment and Plan Assessment: Impression. 1. Acute kidney injury secondary to diabetic ketoacidosis and volume depletion. Creatinine 3.54 on admission is improved to 2.2 a few hours later with hydration. His baseline creatinine 0.68 month ago 12/23/2017. Urinalysis is trace proteinuria therefore unlikely that diabetic nephropathy currently. 2. Hyperkalemia secondary to high blood sugar and trans-cellular shift which is improved with insulin drip. 3. Severe acidosis with gap of 29, delta gap therefore is 17, bicarb is 7 delta bicarb is 14. Therefore all of this acidosis will be reversed once the diabetic keto acidosis controlled with insulin drip. 4. High white count 37,500 but no evidence of any infection 5. Hypophosphatemia phosphorus 2 secondary to insulin and glucose which shifts the phosphorus inside the cells and is expected to improve Recommendation. 1. Maintain IV fluids aggressively at normal saline 200 mL an hour. 2. Expect his gap acidosis should improve once his ketoacidosis controlled with insulin drip 3. As expected potassium is improved with insulin. 4. Close watch on intake and output. 5. We'll check a troponin 6. No need to replace phosphorus. Will improve by itself 7. Check serum magnesium
[2018-01-16 14:55] LABS: Glucose,Whole Blood 500 mg/dL (75-99)
--- NOTE | 2018-01-16 16:03 | P.HPIM ---
History of Present Illness H&P Date: 01/16/18 Chief Complaint: Nausea vomiting abdominal pain This is 83 years old male with history of diabetes mellitus insulin-dependent presents to the emergency department with worsening nausea vomiting and abdominal pain. Patient reported that yesterday 10:00 he started having nausea followed by vomiting patient was vomiting solid food at the beginning but later he was vomiting water and was not able to keep anything down patient removed his insulin pump to avoid becoming hypoglycemic and his weakness got worse to the point where he came into the emergency department. Patient was having shivering but no official the fever. Patient denied any productive cough recent upper respiratory symptoms and denied any recent dysuria. Patient stated that he is competent with his medication since he was diagnosed 2 years ago with diabetes mellitus and has been on insulin pump and he said his numbers are all well controlled currently sister at the bedside was not able to provide any information and patient was lethargic and said that he lives with his who brought into the emergency department. Patient denied any history of gastroparesis, smoking, alcohol or drug abuse. Patient stated that his symptoms has improved this morning and feels that he is hungry at this point and asking for diet. Patient in the emergency department was found to have glucose above 1000 with possible anion gap and was started on insulin drip with the future monitor fluid resuscitation Review of Systems All 14 systems reviewed and negative except as above Past Medical History Past Medical History: Asthma, Diabetes Mellitus Additional Past Medical History / Comment(s): Type 1 DM, insulin pump History of Any Multi-Drug Resistant Organisms: None Reported Past Surgical History: No Surgical Hx Reported Past Anesthesia/Blood Transfusion Reactions: No Reported Reaction Past Psychological History: No Psychological Hx Reported Smoking Status: Former smoker Past Alcohol Use History: None Reported Past Drug Use History: None Reported - Past Family History Mother Family Medical History: No Reported History Father Family Medical History: No Reported History Medications and Allergies Home Medications Medication Instructions Recorded Confirmed Type Cholecalciferol [Vitamin D3] 5,000 unit PO CEDILLO 01/16/18 01/16/18 History Ferrous Sulfate [Feosol] 325 mg PO DAILY 01/16/18 01/16/18 History Gabapentin [Neurontin] 300 mg PO BID 01/16/18 01/16/18 History Insulin Aspart (For Pump) [NovoLOG 0.01 unit SQ-PUMP CONTINUOUS 01/16/18 History (For Pump)] Multivitamins, Thera [Multivitamin 1 tab PO DAILY 01/16/18 01/16/18 History (formulary)] Omeprazole [PriLOSEC] 20 mg PO AC-BRKFST 01/16/18 01/16/18 History Allergies Allergy/AdvReac Type Severity Reaction Status Date / Time cefaclor [From [facility]] Allergy Unknown Verified 01/16/18 11:19 Childhood peanut Allergy Anaphylaxis Verified 01/16/18 11:19 Penicillins Allergy Unknown Verified 01/16/18 11:19 Childhood Physical Exam Vitals: Vital Signs Temp Pulse Pulse Resp BP BP Pulse Ox 01/16/18 15:00 107 H 21 116/60 100 01/16/18 14:00 111/60 98 01/16/18 13:50 113 H 24 111/60 100 01/16/18 13:40 110 H 22 106/59 100 01/16/18 13:32 97.7 F 114 H 13 100 01/16/18 13:09 98.1 F 121 H 18 111/57 100 01/16/18 12:41 97.7 F 114 H 18 111/60 100 01/16/18 12:00 96.9 F L 120 H 14 105/55 100 01/16/18 11:00 97.0 F L 120 H 20 105/55 100 01/16/18 10:25 125 H 20 102/53 100 01/16/18 10:00 97.1 F L 124 H 15 103/51 100 01/16/18 09:45 126 H 24 93/47 100 01/16/18 09:44 122 H 01/16/18 09:37 121 H 01/16/18 08:35 122 H 20 93/47 96 01/16/18 08:23 96.9 F L 01/16/18 07:58 132 H 24 94/61 95 Intake and Output 01/16/18 01/16/18 01/16/18 06:59 14:59 22:59 Intake Total 200 Output Total 600 Balance -400 Intake: IV 200 Sodium Chloride 0.9% 1, 200 000 ml @ 200 mls/hr IV . Q5H [facility] Rx#:[id number] Output: Urine 600 Other: Voiding Method Toilet # Voids 1 Weight 89 kg Gen.: in stated age, no acute distress Heart: Normal S1-S2 Lungs: Clear to auscultation bilaterally Abdomen: Soft, mild tenderness in the epigastric area, no distention, positive bowel sounds in all 4 quadrant no guarding or rebound Skin: No new rash Psych: Alert and oriented 3 Neuro: No focal deficit Results CBC & Chem 7: 01/16/18 08:33 01/16/18 12:17 Labs: Abnormal Lab Results - Last 24 Hours (Table) 01/16/18 01/16/18 01/16/18 Range/Units 08:15 08:33 08:33 WBC 37.5 H* (3.8-10.6) k/uL Hct 55.8 H (39.0-53.0) % MCHC 30.3 L (31.0-37.0) g/dL Neutrophils # 31.1 H (1.3-7.7) k/uL Monocytes # 3.3 H (0-1.0) k/uL Sodium 133 L (137-145) mmol/L Potassium 7.2 H* (3.5-5.1) mmol/L Chloride 88 L (98-107) mmol/L Carbon Dioxide <5 L* (22-30) mmol/L BUN 35 H (9-20) mg/dL Creatinine 3.54 H (0.66-1.25) mg/dL Glucose 1023 H* (74-99) mg/dL POC Glucose (mg/dL) >600 H (75-99) mg/dL Phosphorus (2.5-4.5) mg/dL Total Bilirubin 2.0 H (0.2-1.3) mg/dL Albumin 5.3 H (3.5-5.0) g/dL Urine Protein (Negative) Urine Glucose (UA) (Negative) Urine Ketones (Negative) Urine Blood (Negative) Urine WBC (0-5) /hpf Urine Mucus (None) /hpf 01/16/18 01/16/18 01/16/18 Range/Units 09:24 10:03 11:06 WBC (3.8-10.6) k/uL Hct (39.0-53.0) % MCHC (31.0-37.0) g/dL Neutrophils # (1.3-7.7) k/uL Monocytes # (0-1.0) k/uL Sodium (137-145) mmol/L Potassium (3.5-5.1) mmol/L Chloride (98-107) mmol/L Carbon Dioxide (22-30) mmol/L BUN (9-20) mg/dL Creatinine (0.66-1.25) mg/dL Glucose (74-99) mg/dL POC Glucose (mg/dL) >600 H >600 H >600 H (75-99) mg/dL Phosphorus (2.5-4.5) mg/dL Total Bilirubin (0.2-1.3) mg/dL Albumin (3.5-5.0) g/dL Urine Protein (Negative) Urine Glucose (UA) (Negative) Urine Ketones (Negative) Urine Blood (Negative) Urine WBC (0-5) /hpf Urine Mucus (None) /hpf 01/16/18 01/16/18 01/16/18 Range/Units 11:25 12:05 12:17 WBC (3.8-10.6) k/uL Hct (39.0-53.0) % MCHC (31.0-37.0) g/dL Neutrophils # (1.3-7.7) k/uL Monocytes # (0-1.0) k/uL Sodium (137-145) mmol/L Potassium (3.5-5.1) mmol/L Chloride (98-107) mmol/L Carbon Dioxide 7 L* (22-30) mmol/L BUN 37 H (9-20) mg/dL Creatinine 2.20 H (0.66-1.25) mg/dL Glucose 636 H* (74-99) mg/dL POC Glucose (mg/dL) >600 H (75-99) mg/dL Phosphorus 2.0 L (2.5-4.5) mg/dL Total Bilirubin (0.2-1.3) mg/dL Albumin (3.5-5.0) g/dL Urine Protein Trace H (Negative) Urine Glucose (UA) 4+ H (Negative) Urine Ketones 3+ H (Negative) Urine Blood Moderate H (Negative) Urine WBC 11 H (0-5) /hpf Urine Mucus Rare H (None) /hpf 01/16/18 01/16/18 01/16/18 Range/Units 13:08 13:33 14:53 WBC (3.8-10.6) k/uL Hct (39.0-53.0) % MCHC (31.0-37.0) g/dL Neutrophils # (1.3-7.7) k/uL Monocytes # (0-1.0) k/uL Sodium (137-145) mmol/L Potassium (3.5-5.1) mmol/L Chloride (98-107) mmol/L Carbon Dioxide (22-30) mmol/L BUN (9-20) mg/dL Creatinine (0.66-1.25) mg/dL Glucose (74-99) mg/dL POC Glucose (mg/dL) 515 H 581 H 500 H (75-99) mg/dL Phosphorus (2.5-4.5) mg/dL Total Bilirubin (0.2-1.3) mg/dL Albumin (3.5-5.0) g/dL Urine Protein (Negative) Urine Glucose (UA) (Negative) Urine Ketones (Negative) Urine Blood (Negative) Urine WBC (0-5) /hpf Urine Mucus (None) /hpf Thrombosis Risk Factor Assmnt - Choose All That Apply Each Factor Represents 1 point: Obesity (BMI >25) Other Risk Factors: No Other congenital or acquired thrombophilia - If yes, enter type in comment: No Thrombosis Risk Factor Assessment Total Risk Factor Score: 1 Thrombosis Risk Factor Assessment Level: Low Risk Assessment and Plan Assessment: 1. DKA. 2. Nausea vomiting abdominal pain likely related to gastroenteritis. 3. Severe leukocytosis likely reactive. 4. Acute hyperkalemia. 5. Severe dehydration. 6. Diabetes mellitus insulin pump dependent. 7. GERD. 8. Peripheral neuropathy. 9. Vitamin D deficiency. 10. Anemia. Patient will be admitted to the intensive care unit with insulin drip protocol and chemistry every 3 hours we would continue with aggressive IV hydration keep patient's nothing by mouth at this point and a special attention to leukocytosis which likely represent reactive leukocytosis but we would consider further testing and consult and evaluation based on repeat numbers in the morning we'll resume home medication and follow-up with critical care recommendation I discussed the case with nephrology at the bedside.
[2018-01-16 16:24] LABS: Glucose,Whole Blood 353 mg/dL (75-99)
[2018-01-16 16:46] LABS: Magnesium 2.8 mg/dL (1.6-2.3); Phosphorus 1.5 mg/dL (2.5-4.5); Potassium 4.9 mmol/L (3.5-5.1)
[2018-01-16 17:20] LABS: Glucose,Whole Blood 328 mg/dL (75-99)
[2018-01-16 18:16] LABS: Glucose,Whole Blood 298 mg/dL (75-99)
[2018-01-16] MEDS ORDERED: ACETAMINOPHEN IV (For NPO) 1,000 MG in EMPTY BAG 1 BAG IVPB STA (18:20)
[2018-01-16] MEDS: D5-0.45% NACL WITH KCL 20MEQ/L 1,000 ML IV SCH (19:01)
[2018-01-16 19:07] LABS: Glucose,Whole Blood 244 mg/dL (75-99)
[2018-01-16 19:51] LABS: Glucose,Whole Blood 268 mg/dL (75-99)
[2018-01-16 20:57] LABS: Glucose,Whole Blood 193 mg/dL (75-99)
[2018-01-16 22:03] LABS: Glucose,Whole Blood 261 mg/dL (75-99)
[2018-01-16 22:08] LABS: Anion Gap 13 mmol/L; Blood Urea Nitrogen 27 mg/dL (9-20); Calcium 8.5 mg/dL (8.4-10.2); Carbon Dioxide 20 mmol/L (22-30); Chloride 113 mmol/L (98-107); Glucose 192 mg/dL (74-99); Magnesium 2.4 mg/dL (1.6-2.3); Phosphorus 1.3 mg/dL (2.5-4.5); Potassium 4.4 mmol/L (3.5-5.1); Sodium 146 mmol/L (137-145)
[2018-01-16 23:06] LABS: Glucose,Whole Blood 153 mg/dL (75-99)
[2018-01-17 00:09] LABS: Glucose,Whole Blood 144 mg/dL (75-99)
[2018-01-17] MEDS: D5-0.45% NACL WITH KCL 20MEQ/L 1,000 ML IV SCH ×2 (01:00→09:26)
[2018-01-17 01:08] LABS: Glucose,Whole Blood 113 mg/dL (75-99)
[2018-01-17 02:03] LABS: Glucose,Whole Blood 131 mg/dL (75-99)
[2018-01-17 03:13] LABS: Glucose,Whole Blood 194 mg/dL (75-99)
[2018-01-17 04:07] LABS: Glucose,Whole Blood 234 mg/dL (75-99)
[2018-01-17 04:44] LABS: Basophils % (A) 0 %; Eosinophils % (A) 0 %; HCT 40.6 % (39.0-53.0); HGB 14.1 gm/dL (13.0-17.5); Lymphocytes # (A) 0.9 k/uL (1.0-4.8); Lymphocytes % (A) 4 %; MCHC 34.7 g/dL (31.0-37.0); Mean Platelet Volume 6.7; Monocytes # (A) 1.3 k/uL (0-1.0); Monocytes % (A) 7 %; Neutrophils # (A) 17.9 k/uL (1.3-7.7); Neutrophils % (A) 88 %; Platelet Count 192 k/uL (150-450); RBC 4.68 m/uL (4.30-5.90); WBC 20.4 k/uL (3.8-10.6)
[2018-01-17 04:45] LABS: Anion Gap 17 mmol/L; Blood Urea Nitrogen 21 mg/dL (9-20); Calcium 8.1 mg/dL (8.4-10.2); Carbon Dioxide 17 mmol/L (22-30); Chloride 111 mmol/L (98-107); Glucose 240 mg/dL (74-99); MCV 86.6 fL (80.0-100.0); Magnesium 2.1 mg/dL (1.6-2.3); Phosphorus 2.6 mg/dL (2.5-4.5); Potassium 4.8 mmol/L (3.5-5.1); Sodium 145 mmol/L (137-145)
[2018-01-17 05:05] LABS: Glucose,Whole Blood 240 mg/dL (75-99)
[2018-01-17 05:56] LABS: Glucose,Whole Blood 215 mg/dL (75-99)
[2018-01-17 06:57] LABS: Glucose,Whole Blood 261 mg/dL (75-99)
[2018-01-17] MEDS: PANTOPRAZOLE 40 MG/10 ML VIAL IV SCH (08:32)
[2018-01-17] MEDS ORDERED: MAG HYDROX/AL HYDROX/SIMETH 30 ML CUP PO PRN (08:37)
[2018-01-17] MEDS: ACETAMINOPHEN IV (For NPO) 1,000 MG in EMPTY BAG 1 BAG IVPB SCH ×4 (08:37→23:13)
--- NOTE | 2018-01-17 08:47 | P.PN ---
Subjective Progress Note Date: 01/17/18 Principal diagnosis: Acute diabetic ketoacidosis, acute dehydration and prerenal azotemia This is a 33-year-old white male with history of type 1 diabetes, on insulin pump for the last 2 years. History of stable bronchial asthma, not requiring any treatment for the last few years. Patient presented to the ER with 1 day history of nausea vomiting, and abdominal cramps. Patient couldn't hold anything down, no diarrhea, no fever, no chills, no headache, no blurred vision , no dizziness. Patient was having also symptoms of excessive first. Upon workup in the ER he was found to have significantly elevated blood sugar, 636, and he was also found to have positive ketones in the urine, significantly elevated anion gap metabolic acidosis, bicarb of 7, BUN of 37 creatinine of 2.20. Patient was started on the diabetic ketoacidosis protocol, admitted to the ICU, and I saw him on consultation. Patient denies any headaches, no blurred vision, no dizziness, no cough no wheezing no fever no chills no hemoptysis no chest pain. His symptoms are mostly GI related, denies any dysuria frequency or urgency. Patient denies noncompliance with his insulin. However the insulin pump was discontinued upon admission. On 01/17/2018 patient seen again in the intensive care unit. Awake, alert, in no acute distress. No nausea, no vomiting, does complain of some mild heartburn , and is currently on Protonix, he takes Prilosec, and states the Prilosec works better for him. Tolerating ice chips and clear liquid diet, on room air, lung sounds are clear to auscultation, no shortness of breath, no chest pain. IV D5 half-normal saline with 20 any acute of potassium chloride at a rate of 150 ML per hour, insulin drip at 6.5 units per hour. Vital signs are stable, afebrile, hemodynamically stable. Chest x-ray from 01/16/2018 showed no acute process. Denies any dizziness, does have a mild headache. Complaining of stomach wall soreness from vomiting. Today's labs were reviewed, WBC is trending down, down to 20.4 from 37.5. Hemoglobin is 14.1, sodium is 145, potassium is 4.8, chloride is 111, CO2 is 17, anion gap remains elevated, at 17 , BUN is 21, creatinine 0.94. Patient states his DKA was precipitated by an episode of stomach virus. Objective - Vital Signs Vital signs: Vital Signs Temp 98.7 F 01/17/18 04:00 Pulse 100 01/17/18 07:00 Resp 21 01/17/18 07:00 BP 113/56 01/17/18 07:00 Pulse Ox 99 01/17/18 07:00 Intake & Output 01/16/18 01/17/18 01/17/18 18:59 06:59 18:59 Intake Total 1150 2389.671 Output Total 950 500 Balance 200 1889.671 Weight 89 kg 88.1 kg Intake: IV 1150 1950 D5-0.45% NaCl with KCl 150 1950 20Meq/l 1,000 ml @ 150 mls/hr IV .Q6H40M [facility] Rx# :[id number] Sodium Chloride 0.9% 1, 1000 000 ml @ 200 mls/hr IV . Q5H [facility] Rx#:[id number] Intake, IV Titration 259.671 Amount ACETAMINOPHEN IV (For NPO 100 ) 1,000 mg In Empty Bag 1 bag @ 400 mls/hr IVPB ONCE [facility] Rx#:[id number] Insulin Regular 100 unit 159.671 In Sodium Chloride 0.9% 100 ml @ 0.1 UNITS/KG/HR 9.16 mls/hr IV .Q11H2M [facility] Rx#:[id number] Oral 180 Output: Urine 950 500 Other: Voiding Method Toilet Toilet # Voids 0 1 # Bowel Movements 0 0 - Exam Physical Exam: Revealed a 33-year-old white male, very pleasant, in no distress. Head: Atraumatic, normocephalic. HEENT:[Neck is supple.] [No neck masses.] [No thyromegaly.] [No JVD.] PERRLA, EOMI, dry mucous membranes. No icterus. Chest: [Clear throughout, no crackles, no rhonchi, no wheezes.] Cardiac Exam: [Normal S1 and S2, no S3 gallop, no murmur.] Abdomen: [Soft, nontender, no megaly, no rebound, no guarding, normal bowel sounds.] Extremities: [No clubbing, no edema, no cyanosis.] Neurological Exam: [No focal neurologic deficit.] Psychiatric: Normal mood affect and mental status examination. Lymphatics: No lymphadenopathy. Musculoskeletal: Normal range of motion, no deformities. - Labs CBC & Chem 7: 01/17/18 04:02 01/17/18 04:02 Labs: Abnormal Lab Results - Last 24 Hours (Table) 01/16/18 01/16/18 01/16/18 Range/Units 08:33 08:33 09:24 WBC 37.5 H* (3.8-10.6) k/uL Hct 55.8 H (39.0-53.0) % MCHC 30.3 L (31.0-37.0) g/dL Neutrophils # 31.1 H (1.3-7.7) k/uL Lymphocytes # (1.0-4.8) k/uL Monocytes # 3.3 H (0-1.0) k/uL Sodium 133 L (137-145) mmol/L Potassium 7.2 H* (3.5-5.1) mmol/L Chloride 88 L (98-107) mmol/L Carbon Dioxide <5 L* (22-30) mmol/L BUN 35 H (9-20) mg/dL Creatinine 3.54 H (0.66-1.25) mg/dL Glucose 1023 H* (74-99) mg/dL POC Glucose (mg/dL) >600 H (75-99) mg/dL Calcium (8.4-10.2) mg/dL Phosphorus (2.5-4.5) mg/dL Magnesium (1.6-2.3) mg/dL Total Bilirubin 2.0 H (0.2-1.3) mg/dL Albumin 5.3 H (3.5-5.0) g/dL Urine Protein (Negative) Urine Glucose (UA) (Negative) Urine Ketones (Negative) Urine Blood (Negative) Urine WBC (0-5) /hpf Urine Mucus (None) /hpf 01/16/18 01/16/18 01/16/18 Range/Units 10:03 11:06 11:25 WBC (3.8-10.6) k/uL Hct (39.0-53.0) % MCHC (31.0-37.0) g/dL Neutrophils # (1.3-7.7) k/uL Lymphocytes # (1.0-4.8) k/uL Monocytes # (0-1.0) k/uL Sodium (137-145) mmol/L Potassium (3.5-5.1) mmol/L Chloride (98-107) mmol/L Carbon Dioxide (22-30) mmol/L BUN (9-20) mg/dL Creatinine (0.66-1.25) mg/dL Glucose (74-99) mg/dL POC Glucose (mg/dL) >600 H >600 H (75-99) mg/dL Calcium (8.4-10.2) mg/dL Phosphorus (2.5-4.5) mg/dL Magnesium (1.6-2.3) mg/dL Total Bilirubin (0.2-1.3) mg/dL Albumin (3.5-5.0) g/dL Urine Protein Trace H (Negative) Urine Glucose (UA) 4+ H (Negative) Urine Ketones 3+ H (Negative) Urine Blood Moderate H (Negative) Urine WBC 11 H (0-5) /hpf Urine Mucus Rare H (None) /hpf 01/16/18 01/16/18 01/16/18 Range/Units 12:05 12:17 13:08 WBC (3.8-10.6) k/uL Hct (39.0-53.0) % MCHC (31.0-37.0) g/dL Neutrophils # (1.3-7.7) k/uL Lymphocytes # (1.0-4.8) k/uL Monocytes # (0-1.0) k/uL Sodium (137-145) mmol/L Potassium (3.5-5.1) mmol/L Chloride (98-107) mmol/L Carbon Dioxide 7 L* (22-30) mmol/L BUN 37 H (9-20) mg/dL Creatinine 2.20 H (0.66-1.25) mg/dL Glucose 636 H* (74-99) mg/dL POC Glucose (mg/dL) >600 H 515 H (75-99) mg/dL Calcium (8.4-10.2) mg/dL Phosphorus 2.0 L (2.5-4.5) mg/dL Magnesium (1.6-2.3) mg/dL Total Bilirubin (0.2-1.3) mg/dL Albumin (3.5-5.0) g/dL Urine Protein (Negative) Urine Glucose (UA) (Negative) Urine Ketones (Negative) Urine Blood (Negative) Urine WBC (0-5) /hpf Urine Mucus (None) /hpf 01/16/18 01/16/18 01/16/18 Range/Units 13:33 14:53 15:57 WBC (3.8-10.6) k/uL Hct (39.0-53.0) % MCHC (31.0-37.0) g/dL Neutrophils # (1.3-7.7) k/uL Lymphocytes # (1.0-4.8) k/uL Monocytes # (0-1.0) k/uL Sodium 146 H (137-145) mmol/L Potassium (3.5-5.1) mmol/L Chloride 110 H (98-107) mmol/L Carbon Dioxide 13 L (22-30) mmol/L BUN 35 H (9-20) mg/dL Creatinine 1.60 H (0.66-1.25) mg/dL Glucose 366 H (74-99) mg/dL POC Glucose (mg/dL) 581 H 500 H (75-99) mg/dL Calcium (8.4-10.2) mg/dL Phosphorus 1.5 L (2.5-4.5) mg/dL Magnesium 2.8 H (1.6-2.3) mg/dL Total Bilirubin (0.2-1.3) mg/dL Albumin (3.5-5.0) g/dL Urine Protein (Negative) Urine Glucose (UA) (Negative) Urine Ketones (Negative) Urine Blood (Negative) Urine WBC (0-5) /hpf Urine Mucus (None) /hpf 01/16/18 01/16/18 01/16/18 Range/Units 16:21 17:18 18:13 WBC (3.8-10.6) k/uL Hct (39.0-53.0) % MCHC (31.0-37.0) g/dL Neutrophils # (1.3-7.7) k/uL Lymphocytes # (1.0-4.8) k/uL Monocytes # (0-1.0) k/uL Sodium (137-145) mmol/L Potassium (3.5-5.1) mmol/L Chloride (98-107) mmol/L Carbon Dioxide (22-30) mmol/L BUN (9-20) mg/dL Creatinine (0.66-1.25) mg/dL Glucose (74-99) mg/dL POC Glucose (mg/dL) 353 H 328 H 298 H (75-99) mg/dL Calcium (8.4-10.2) mg/dL Phosphorus (2.5-4.5) mg/dL Magnesium (1.6-2.3) mg/dL Total Bilirubin (0.2-1.3) mg/dL Albumin (3.5-5.0) g/dL Urine Protein (Negative) Urine Glucose (UA) (Negative) Urine Ketones (Negative) Urine Blood (Negative) Urine WBC (0-5) /hpf Urine Mucus (None) /hpf 01/16/18 01/16/18 01/16/18 Range/Units 19:06 19:50 20:56 WBC (3.8-10.6) k/uL Hct (39.0-53.0) % MCHC (31.0-37.0) g/dL Neutrophils # (1.3-7.7) k/uL Lymphocytes # (1.0-4.8) k/uL Monocytes # (0-1.0) k/uL Sodium (137-145) mmol/L Potassium (3.5-5.1) mmol/L Chloride (98-107) mmol/L Carbon Dioxide (22-30) mmol/L BUN (9-20) mg/dL Creatinine (0.66-1.25) mg/dL Glucose (74-99) mg/dL POC Glucose (mg/dL) 244 H 268 H 193 H (75-99) mg/dL Calcium (8.4-10.2) mg/dL Phosphorus (2.5-4.5) mg/dL Magnesium (1.6-2.3) mg/dL Total Bilirubin (0.2-1.3) mg/dL Albumin (3.5-5.0) g/dL Urine Protein (Negative) Urine Glucose (UA) (Negative) Urine Ketones (Negative) Urine Blood (Negative) Urine WBC (0-5) /hpf Urine Mucus (None) /hpf 01/16/18 01/16/1818 Range/Units 21:34 22:00 23:05 WBC (3.8-10.6) k/uL Hct (39.0-53.0) % MCHC (31.0-37.0) g/dL Neutrophils # (1.3-7.7) k/uL Lymphocytes # (1.0-4.8) k/uL Monocytes # (0-1.0) k/uL Sodium 146 H (137-145) mmol/L Potassium (3.5-5.1) mmol/L Chloride 113 H (98-107) mmol/L Carbon Dioxide 20 L (22-30) mmol/L BUN 27 H (9-20) mg/dL Creatinine (0.66-1.25) mg/dL Glucose 192 H (74-99) mg/dL POC Glucose (mg/dL) 261 H 153 H (75-99) mg/dL Calcium (8.4-10.2) mg/dL Phosphorus 1.3 L (2.5-4.5) mg/dL Magnesium 2.4 H (1.6-2.3) mg/dL Total Bilirubin (0.2-1.3) mg/dL Albumin (3.5-5.0) g/dL Urine Protein (Negative) Urine Glucose (UA) (Negative) Urine Ketones (Negative) Urine Blood (Negative) Urine WBC (0-5) /hpf Urine Mucus (None) /hpf 01/17/18 01/17/18 01/17/18 Range/Units 00:07 01:06 02:01 WBC (3.8-10.6) k/uL Hct (39.0-53.0) % MCHC (31.0-37.0) g/dL Neutrophils # (1.3-7.7) k/uL Lymphocytes # (1.0-4.8) k/uL Monocytes # (0-1.0) k/uL Sodium (137-145) mmol/L Potassium (3.5-5.1) mmol/L Chloride (98-107) mmol/L Carbon Dioxide (22-30) mmol/L BUN (9-20) mg/dL Creatinine (0.66-1.25) mg/dL Glucose (74-99) mg/dL POC Glucose (mg/dL) 144 H 113 H 131 H (75-99) mg/dL Calcium (8.4-10.2) mg/dL Phosphorus (2.5-4.5) mg/dL Magnesium (1.6-2.3) mg/dL Total Bilirubin (0.2-1.3) mg/dL Albumin (3.5-5.0) g/dL Urine Protein (Negative) Urine Glucose (UA) (Negative) Urine Ketones (Negative) Urine Blood (Negative) Urine WBC (0-5) /hpf Urine Mucus (None) /hpf 01/17/18 01/17/18 01/17/18 Range/Units 03:11 04:02 04:02 WBC 20.4 H (3.8-10.6) k/uL Hct (39.0-53.0) % MCHC (31.0-37.0) g/dL Neutrophils # 17.9 H (1.3-7.7) k/uL Lymphocytes # 0.9 L (1.0-4.8) k/uL Monocytes # 1.3 H (0-1.0) k/uL Sodium (137-145) mmol/L Potassium (3.5-5.1) mmol/L Chloride 111 H (98-107) mmol/L Carbon Dioxide 17 L (22-30) mmol/L BUN 21 H (9-20) mg/dL Creatinine (0.66-1.25) mg/dL Glucose 240 H (74-99) mg/dL POC Glucose (mg/dL) 194 H (75-99) mg/dL Calcium 8.1 L (8.4-10.2) mg/dL Phosphorus (2.5-4.5) mg/dL Magnesium (1.6-2.3) mg/dL Total Bilirubin (0.2-1.3) mg/dL Albumin (3.5-5.0) g/dL Urine Protein (Negative) Urine Glucose (UA) (Negative) Urine Ketones (Negative) Urine Blood (Negative) Urine WBC (0-5) /hpf Urine Mucus (None) /hpf 01/17/18 01/17/18 01/17/18 Range/Units 04:06 05:04 05:54 WBC (3.8-10.6) k/uL Hct (39.0-53.0) % MCHC (31.0-37.0) g/dL Neutrophils # (1.3-7.7) k/uL Lymphocytes # (1.0-4.8) k/uL Monocytes # (0-1.0) k/uL Sodium (137-145) mmol/L Potassium (3.5-5.1) mmol/L Chloride (98-107) mmol/L Carbon Dioxide (22-30) mmol/L BUN (9-20) mg/dL Creatinine (0.66-1.25) mg/dL Glucose (74-99) mg/dL POC Glucose (mg/dL) 234 H 240 H 215 H (75-99) mg/dL Calcium (8.4-10.2) mg/dL Phosphorus (2.5-4.5) mg/dL Magnesium (1.6-2.3) mg/dL Total Bilirubin (0.2-1.3) mg/dL Albumin (3.5-5.0) g/dL Urine Protein (Negative) Urine Glucose (UA) (Negative) Urine Ketones (Negative) Urine Blood (Negative) Urine WBC (0-5) /hpf Urine Mucus (None) /hpf 01/17/18 Range/Units 06:55 WBC (3.8-10.6) k/uL Hct (39.0-53.0) % MCHC (31.0-37.0) g/dL Neutrophils # (1.3-7.7) k/uL Lymphocytes # (1.0-4.8) k/uL Monocytes # (0-1.0) k/uL Sodium (137-145) mmol/L Potassium (3.5-5.1) mmol/L Chloride (98-107) mmol/L Carbon Dioxide (22-30) mmol/L BUN (9-20) mg/dL Creatinine (0.66-1.25) mg/dL Glucose (74-99) mg/dL POC Glucose (mg/dL) 261 H (75-99) mg/dL Calcium (8.4-10.2) mg/dL Phosphorus (2.5-4.5) mg/dL Magnesium (1.6-2.3) mg/dL Total Bilirubin (0.2-1.3) mg/dL Albumin (3.5-5.0) g/dL Urine Protein (Negative) Urine Glucose (UA) (Negative) Urine Ketones (Negative) Urine Blood (Negative) Urine WBC (0-5) /hpf Urine Mucus (None) /hpf Assessment and Plan Plan: Assessment: 1 acute diabetic ketoacidosis, 2 acute dehydration and prerenal azotemia. 3 diabetes type 1, patient has been very compliant with his meds and insulin. 4 mild stable asthma not requiring any treatment. 5 reactive leukocytosis, no clear-cut evidence of true infection. No documented fever. Recommendation: Advance activity as tolerated, patient has had no vomiting, and has been tolerating clear liquid diet. Continue current IV fluids D5 half-normal saline with 20 of potassium at the current rate, continue insulin infusion per DKA protocol, anion gap has not closed yet. Patient is afebrile, no clear-cut evidence of infectious process. Leukocytosis is improving, and is thought to be reactive in nature. Patient remains hemodynamically stable. We'll repeat labs this morning, continue monitoring electrolytes, renal profile. Will remain in the ICU today. I performed a history & physical examination of the patient and discussed their management with my nurse practitioner, Nandini Griffith. I reviewed the nurse practitioner's note and agree with the documented findings and plan of care. Lung sounds are clear. The findings and the impression was discussed with the patient. I attest to the documentation by the nurse practitioner. Critical care time is over 30 minutes Time with Patient: Greater than 30
[2018-01-17 08:48] LABS: Glucose,Whole Blood 167 mg/dL (75-99)
[2018-01-17 09:45] LABS: Anion Gap 11 mmol/L; Blood Urea Nitrogen 18 mg/dL (9-20); Calcium 8.4 mg/dL (8.4-10.2); Carbon Dioxide 25 mmol/L (22-30); Chloride 108 mmol/L (98-107); Glucose 162 mg/dL (74-99); Potassium 4.8 mmol/L (3.5-5.1); Sodium 144 mmol/L (137-145)
[2018-01-17 10:07] LABS: Glucose,Whole Blood 163 mg/dL (75-99)
[2018-01-17 10:16] VITALS: BMI 27.1
[2018-01-17 10:55] LABS: Glucose,Whole Blood 220 mg/dL (75-99)
--- NOTE | 2018-01-17 11:30 | PN ---
PROGRESS NOTE The patient is seen for followup for acute kidney injury which was mainly prerenal and secondary to hypovolemia associated with DKA. The patient remains on insulin drip. His anion gap has not closed yet. PHYSICAL EXAMINATION: On examination, blood pressure is 108/64, heart rate 110 per minute. He is afebrile. EXAMINATION OF THE HEART: S1 and S2. EXAMINATION OF THE LUNGS: Bilateral breath sounds are heard. Abdomen is soft, nontender. Examination of the lower extremities shows no evidence of edema. 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 LABS: Labs show sodium 144, potassium 4.8, chloride 108, BUN 18, serum creatinine 0.87. ASSESSMENT: 1. Acute kidney injury, prerenal with creatinine decreasing from 3.5 to 0.8 mg/dL now. 2. Diabetic ketoacidosis with anion gap of 17 this morning. It appears to have improved and anion gap is down to 11 now. The patient is on insulin drip, which can likely be discontinued now since the gap has closed. 3. Hypovolemia, currently improved with IV hydration. PLAN: Continue IV fluids and follow the DKA protocol. The IV insulin can be discontinued since the gap has now closed. MMODL / IJN: [id number] /
[2018-01-17] MEDS ORDERED: INSULIN PUMP BASAL RATES 1 EACH MISC MISCELLANE PRN (11:50)
[2018-01-17] MEDS ORDERED: INSULIN PUMP TARGET GLUCOSE 1 EACH MISC MISCELLANE PRN (11:50)
[2018-01-17] MEDS ORDERED: INSULIN ASPART 100 UNIT/ML 1 ML 10 ML VIAL SQ PRN (11:50)
[2018-01-17] MEDS ORDERED: INSPUCOR MISCELLANE PRN (11:50)
[2018-01-17 12:04] LABS: Glucose,Whole Blood 286 mg/dL (75-99)
[2018-01-17] MEDS: INSULIN PUMP MEAL BOLUS 1 UNIT MISC MISCELLANE SCH ×3 (12:12→15:00)
--- NOTE | 2018-01-17 12:43 | P.PN ---
Subjective Progress Note Date: 01/17/18 This is 33 years old male with history of diabetes mellitus insulin-dependent presents to the emergency department with worsening nausea vomiting and abdominal pain. Patient reported that yesterday 10:00 he started having nausea followed by vomiting patient was vomiting solid food at the beginning but later he was vomiting water and was not able to keep anything down patient removed his insulin pump to avoid becoming hypoglycemic and his weakness got worse to the point where he came into the emergency department. Patient was having shivering but no official the fever. Patient denied any productive cough recent upper respiratory symptoms and denied any recent dysuria. Patient stated that he is competent with his medication since he was diagnosed 2 years ago with diabetes mellitus and has been on insulin pump and he said his numbers are all well controlled currently sister at the bedside was not able to provide any information and patient was lethargic and said that he lives with his who brought into the emergency department. Patient denied any history of gastroparesis, smoking, alcohol or drug abuse. Patient stated that his symptoms has improved this morning and feels that he is hungry at this point and asking for diet. Patient in the emergency department was found to have glucose above 1000 with possible anion gap and was started on insulin drip with the future monitor fluid resuscitation 01/17: Patient remains in the ICU. Blood sugars are in the 200s. Anion gap 17 and CO2 17. He is to continue on insulin drip. WBC is down to 20.4. He has been afebrile and hemodynamically stable. He denies abdominal pain, nausea or vomiting. He does state he is hungry. He is to start consistent carb diet. Patient follows with Dr. Oliveros, vice president regulatory. He is in the process of getting a new insulin pump. His will call and make an appointment as soon as possible to get back into see her. His last one was 2 weeks ago. Objective - Vital Signs Vital signs: Vital Signs Temp 98.7 F 01/17/18 04:00 Pulse 100 01/17/18 07:00 Resp 21 01/17/18 07:00 BP 113/56 01/17/18 07:00 Pulse Ox 99 01/17/18 07:00 Intake & Output 01/16/18 01/17/18 01/17/18 18:59 06:59 18:59 Intake Total 1150 2389.671 Output Total 950 500 Balance 200 1889.671 Weight 89 kg 88.1 kg Intake: IV 1150 1950 D5-0.45% NaCl with KCl 150 1950 20Meq/l 1,000 ml @ 150 mls/hr IV .Q6H40M DAJA Rx# :[id number] Sodium Chloride 0.9% 1, 1000 000 ml @ 200 mls/hr IV . Q5H DAJA Rx#:[id number] Intake, IV Titration 259.671 Amount ACETAMINOPHEN IV (For NPO 100 ) 1,000 mg In Empty Bag 1 bag @ 400 mls/hr IVPB ONCE STA Rx#:[id number] Insulin Regular 100 unit 159.671 In Sodium Chloride 0.9% 100 ml @ 0.1 UNITS/KG/HR 9.16 mls/hr IV .Q11H2M DAJA Rx#:[id number] Oral 180 Output: Urine 950 500 Other: Voiding Method Toilet Toilet # Voids 0 1 # Bowel Movements 0 0 - Exam Gen.: in stated age, no acute distress Heart: Normal S1-S2 Lungs: Clear to auscultation bilaterally Abdomen: Soft, mild tenderness in the epigastric area, no distention, positive bowel sounds in all 4 quadrant no guarding or rebound Skin: No new rash Psych: Alert and oriented 3 Neuro: No focal deficit - Labs CBC & Chem 7: 01/17/18 04:02 01/17/18 09:19 Labs: Abnormal Lab Results - Last 24 Hours (Table) 01/16/18 01/16/18 01/16/18 Range/Units 08:15 08:33 08:33 WBC 37.5 H* (3.8-10.6) k/uL Hct 55.8 H (39.0-53.0) % MCHC 30.3 L (31.0-37.0) g/dL Neutrophils # 31.1 H (1.3-7.7) k/uL Lymphocytes # (1.0-4.8) k/uL Monocytes # 3.3 H (0-1.0) k/uL Sodium 133 L (137-145) mmol/L Potassium 7.2 H* (3.5-5.1) mmol/L Chloride 88 L (98-107) mmol/L Carbon Dioxide <5 L* (22-30) mmol/L BUN 35 H (9-20) mg/dL Creatinine 3.54 H (0.66-1.25) mg/dL Glucose 1023 H* (74-99) mg/dL POC Glucose (mg/dL) >600 H (75-99) mg/dL Calcium (8.4-10.2) mg/dL Phosphorus (2.5-4.5) mg/dL Magnesium (1.6-2.3) mg/dL Total Bilirubin 2.0 H (0.2-1.3) mg/dL Albumin 5.3 H (3.5-5.0) g/dL Urine Protein (Negative) Urine Glucose (UA) (Negative) Urine Ketones (Negative) Urine Blood (Negative) Urine WBC (0-5) /hpf Urine Mucus (None) /hpf 01/16/18 01/16/18 01/16/18 Range/Units 09:24 10:03 11:06 WBC (3.8-10.6) k/uL Hct (39.0-53.0) % MCHC (31.0-37.0) g/dL Neutrophils # (1.3-7.7) k/uL Lymphocytes # (1.0-4.8) k/uL Monocytes # (0-1.0) k/uL Sodium (137-145) mmol/L Potassium (3.5-5.1) mmol/L Chloride (98-107) mmol/L Carbon Dioxide (22-30) mmol/L BUN (9-20) mg/dL Creatinine (0.66-1.25) mg/dL Glucose (74-99) mg/dL POC Glucose (mg/dL) >600 H >600 H >600 H (75-99) mg/dL Calcium (8.4-10.2) mg/dL Phosphorus (2.5-4.5) mg/dL Magnesium (1.6-2.3) mg/dL Total Bilirubin (0.2-1.3) mg/dL Albumin (3.5-5.0) g/dL Urine Protein (Negative) Urine Glucose (UA) (Negative) Urine Ketones (Negative) Urine Blood (Negative) Urine WBC (0-5) /hpf Urine Mucus (None) /hpf 01/16/18 01/16/18 01/16/18 Range/Units 11:25 12:05 12:17 WBC (3.8-10.6) k/uL Hct (39.0-53.0) % MCHC (31.0-37.0) g/dL Neutrophils # (1.3-7.7) k/uL Lymphocytes # (1.0-4.8) k/uL Monocytes # (0-1.0) k/uL Sodium (137-145) mmol/L Potassium (3.5-5.1) mmol/L Chloride (98-107) mmol/L Carbon Dioxide 7 L* (22-30) mmol/L BUN 37 H (9-20) mg/dL Creatinine 2.20 H (0.66-1.25) mg/dL Glucose 636 H* (74-99) mg/dL POC Glucose (mg/dL) >600 H (75-99) mg/dL Calcium (8.4-10.2) mg/dL Phosphorus 2.0 L (2.5-4.5) mg/dL Magnesium (1.6-2.3) mg/dL Total Bilirubin (0.2-1.3) mg/dL Albumin (3.5-5.0) g/dL Urine Protein Trace H (Negative) Urine Glucose (UA) 4+ H (Negative) Urine Ketones 3+ H (Negative) Urine Blood Moderate H (Negative) Urine WBC 11 H (0-5) /hpf Urine Mucus Rare H (None) /hpf 01/16/18 01/16/18 01/16/18 Range/Units 13:08 13:33 14:53 WBC (3.8-10.6) k/uL Hct (39.0-53.0) % MCHC (31.0-37.0) g/dL Neutrophils # (1.3-7.7) k/uL Lymphocytes # (1.0-4.8) k/uL Monocytes # (0-1.0) k/uL Sodium (137-145) mmol/L Potassium (3.5-5.1) mmol/L Chloride (98-107) mmol/L Carbon Dioxide (22-30) mmol/L BUN (9-20) mg/dL Creatinine (0.66-1.25) mg/dL Glucose (74-99) mg/dL POC Glucose (mg/dL) 515 H 581 H 500 H (75-99) mg/dL Calcium (8.4-10.2) mg/dL Phosphorus (2.5-4.5) mg/dL Magnesium (1.6-2.3) mg/dL Total Bilirubin (0.2-1.3) mg/dL Albumin (3.5-5.0) g/dL Urine Protein (Negative) Urine Glucose (UA) (Negative) Urine Ketones (Negative) Urine Blood (Negative) Urine WBC (0-5) /hpf Urine Mucus (None) /hpf 01/16/18 01/16/18 01/16/18 Range/Units 15:57 16:21 17:18 WBC (3.8-10.6) k/uL Hct (39.0-53.0) % MCHC (31.0-37.0) g/dL Neutrophils # (1.3-7.7) k/uL Lymphocytes # (1.0-4.8) k/uL Monocytes # (0-1.0) k/uL Sodium 146 H (137-145) mmol/L Potassium (3.5-5.1) mmol/L Chloride 110 H (98-107) mmol/L Carbon Dioxide 13 L (22-30) mmol/L BUN 35 H (9-20) mg/dL Creatinine 1.60 H (0.66-1.25) mg/dL Glucose 366 H (74-99) mg/dL POC Glucose (mg/dL) 353 H 328 H (75-99) mg/dL Calcium (8.4-10.2) mg/dL Phosphorus 1.5 L (2.5-4.5) mg/dL Magnesium 2.8 H (1.6-2.3) mg/dL Total Bilirubin (0.2-1.3) mg/dL Albumin (3.5-5.0) g/dL Urine Protein (Negative) Urine Glucose (UA) (Negative) Urine Ketones (Negative) Urine Blood (Negative) Urine WBC (0-5) /hpf Urine Mucus (None) /hpf 01/16/18 01/16/18 01/16/18 Range/Units 18:13 19:06 19:50 WBC (3.8-10.6) k/uL Hct (39.0-53.0) % MCHC (31.0-37.0) g/dL Neutrophils # (1.3-7.7) k/uL Lymphocytes # (1.0-4.8) k/uL Monocytes # (0-1.0) k/uL Sodium (137-145) mmol/L Potassium (3.5-5.1) mmol/L Chloride (98-107) mmol/L Carbon Dioxide (22-30) mmol/L BUN (9-20) mg/dL Creatinine (0.66-1.25) mg/dL Glucose (74-99) mg/dL POC Glucose (mg/dL) 298 H 244 H 268 H (75-99) mg/dL Calcium (8.4-10.2) mg/dL Phosphorus (2.5-4.5) mg/dL Magnesium (1.6-2.3) mg/dL Total Bilirubin (0.2-1.3) mg/dL Albumin (3.5-5.0) g/dL Urine Protein (Negative) Urine Glucose (UA) (Negative) Urine Ketones (Negative) Urine Blood (Negative) Urine WBC (0-5) /hpf Urine Mucus (None) /hpf 01/16/18 01/16/18 01/16/18 Range/Units 20:56 21:34 22:00 WBC (3.8-10.6) k/uL Hct (39.0-53.0) % MCHC (31.0-37.0) g/dL Neutrophils # (1.3-7.7) k/uL Lymphocytes # (1.0-4.8) k/uL Monocytes # (0-1.0) k/uL Sodium 146 H (137-145) mmol/L Potassium (3.5-5.1) mmol/L Chloride 113 H (98-107) mmol/L Carbon Dioxide 20 L (22-30) mmol/L BUN 27 H (9-20) mg/dL Creatinine (0.66-1.25) mg/dL Glucose 192 H (74-99) mg/dL POC Glucose (mg/dL) 193 H 261 H (75-99) mg/dL Calcium (8.4-10.2) mg/dL Phosphorus 1.3 L (2.5-4.5) mg/dL Magnesium 2.4 H (1.6-2.3) mg/dL Total Bilirubin (0.2-1.3) mg/dL Albumin (3.5-5.0) g/dL Urine Protein (Negative) Urine Glucose (UA) (Negative) Urine Ketones (Negative) Urine Blood (Negative) Urine WBC (0-5) /hpf Urine Mucus (None) /hpf 01/16/18 01/17/18 01/17/18 Range/Units 23:05 00:07 01:06 WBC (3.8-10.6) k/uL Hct (39.0-53.0) % MCHC (31.0-37.0) g/dL Neutrophils # (1.3-7.7) k/uL Lymphocytes # (1.0-4.8) k/uL Monocytes # (0-1.0) k/uL Sodium (137-145) mmol/L Potassium (3.5-5.1) mmol/L Chloride (98-107) mmol/L Carbon Dioxide (22-30) mmol/L BUN (9-20) mg/dL Creatinine (0.66-1.25) mg/dL Glucose (74-99) mg/dL POC Glucose (mg/dL) 153 H 144 H 113 H (75-99) mg/dL Calcium (8.4-10.2) mg/dL Phosphorus (2.5-4.5) mg/dL Magnesium (1.6-2.3) mg/dL Total Bilirubin (0.2-1.3) mg/dL Albumin (3.5-5.0) g/dL Urine Protein (Negative) Urine Glucose (UA) (Negative) Urine Ketones (Negative) Urine Blood (Negative) Urine WBC (0-5) /hpf Urine Mucus (None) /hpf 01/17/18 01/17/18 01/17/18 Range/Units 02:01 03:11 04:02 WBC 20.4 H (3.8-10.6) k/uL Hct (39.0-53.0) % MCHC (31.0-37.0) g/dL Neutrophils # 17.9 H (1.3-7.7) k/uL Lymphocytes # 0.9 L (1.0-4.8) k/uL Monocytes # 1.3 H (0-1.0) k/uL Sodium (137-145) mmol/L Potassium (3.5-5.1) mmol/L Chloride (98-107) mmol/L Carbon Dioxide (22-30) mmol/L BUN (9-20) mg/dL Creatinine (0.66-1.25) mg/dL Glucose (74-99) mg/dL POC Glucose (mg/dL) 131 H 194 H (75-99) mg/dL Calcium (8.4-10.2) mg/dL Phosphorus (2.5-4.5) mg/dL Magnesium (1.6-2.3) mg/dL Total Bilirubin (0.2-1.3) mg/dL Albumin (3.5-5.0) g/dL Urine Protein (Negative) Urine Glucose (UA) (Negative) Urine Ketones (Negative) Urine Blood (Negative) Urine WBC (0-5) /hpf Urine Mucus (None) /hpf 01/17/18 01/17/18 01/17/18 Range/Units 04:02 04:06 05:04 WBC (3.8-10.6) k/uL Hct (39.0-53.0) % MCHC (31.0-37.0) g/dL Neutrophils # (1.3-7.7) k/uL Lymphocytes # (1.0-4.8) k/uL Monocytes # (0-1.0) k/uL Sodium (137-145) mmol/L Potassium (3.5-5.1) mmol/L Chloride 111 H (98-107) mmol/L Carbon Dioxide 17 L (22-30) mmol/L BUN 21 H (9-20) mg/dL Creatinine (0.66-1.25) mg/dL Glucose 240 H (74-99) mg/dL POC Glucose (mg/dL) 234 H 240 H (75-99) mg/dL Calcium 8.1 L (8.4-10.2) mg/dL Phosphorus (2.5-4.5) mg/dL Magnesium (1.6-2.3) mg/dL Total Bilirubin (0.2-1.3) mg/dL Albumin (3.5-5.0) g/dL Urine Protein (Negative) Urine Glucose (UA) (Negative) Urine Ketones (Negative) Urine Blood (Negative) Urine WBC (0-5) /hpf Urine Mucus (None) /hpf 01/17/18 01/17/18 Range/Units 05:54 06:55 WBC (3.8-10.6) k/uL Hct (39.0-53.0) % MCHC (31.0-37.0) g/dL Neutrophils # (1.3-7.7) k/uL Lymphocytes # (1.0-4.8) k/uL Monocytes # (0-1.0) k/uL Sodium (137-145) mmol/L Potassium (3.5-5.1) mmol/L Chloride (98-107) mmol/L Carbon Dioxide (22-30) mmol/L BUN (9-20) mg/dL Creatinine (0.66-1.25) mg/dL Glucose (74-99) mg/dL POC Glucose (mg/dL) 215 H 261 H (75-99) mg/dL Calcium (8.4-10.2) mg/dL Phosphorus (2.5-4.5) mg/dL Magnesium (1.6-2.3) mg/dL Total Bilirubin (0.2-1.3) mg/dL Albumin (3.5-5.0) g/dL Urine Protein (Negative) Urine Glucose (UA) (Negative) Urine Ketones (Negative) Urine Blood (Negative) Urine WBC (0-5) /hpf Urine Mucus (None) /hpf Assessment and Plan Plan: 1. DKA. Continue insulin drip until anion gap is closed. Continue DKA protocol. Patient is to start a consistent carb diet. 2. Nausea vomiting abdominal pain likely related to gastroenteritis precipitating DKA and malfunction of insulin pump. Patient's insulin pump does not register over 400 blood sugar. He is in process of obtaining a new insulin pump through Dr. Oliveros. Patient is tolerating diet which will be advanced to consistent carbs. Continue Zofran as needed for nausea. 3. Severe leukocytosis likely reactive. 4. Acute hyperkalemia secondary to acute kidney injury. Resolved. 5. Severe dehydration and acute kidney injury. Consult with Dr. Park is appreciated. 6. Diabetes mellitus insulin pump dependent. Patient to have early follow-up with Dr. Oliveros. He is in the process of getting a new insulin pump. 7. GERD and gastrointestinal prophylaxis. Continue Protonix. 8. Peripheral neuropathy. Patient is usually on gabapentin 300 mg twice daily. 9. Vitamin D deficiency. Discharge plan: Return home in the next 24-48 hours. Impression and plan of care have been directed as dictated by the signing physician. Taylor Price nurse practitioner acting as scribe for signing physician.
[2018-01-17 13:45] LABS: Glucose,Whole Blood 325 mg/dL (75-99)
[2018-01-17] MEDS: INSULIN REGULAR 100 UNIT in SODIUM CHLORIDE 0.9% 100 ML IV SCH (13:58)
[2018-01-17 14:07] LABS: Glucose,Whole Blood 388 mg/dL (75-99)
[2018-01-17 17:35] LABS: Glucose,Whole Blood 269 mg/dL (75-99)
[2018-01-17 18:08] LABS: Glucose,Whole Blood 283 mg/dL (75-99)
[2018-01-17 20:32] LABS: Glucose,Whole Blood 234 mg/dL (75-99)
[2018-01-17 20:34] LABS: Anion Gap 10 mmol/L; Blood Urea Nitrogen 12 mg/dL (9-20); Calcium 8.2 mg/dL (8.4-10.2); Carbon Dioxide 23 mmol/L (22-30); Chloride 104 mmol/L (98-107); Glucose 278 mg/dL (74-99); Potassium 4.2 mmol/L (3.5-5.1); Sodium 137 mmol/L (137-145)
[2018-01-17 22:45] VITALS: RESP 18
[2018-01-18 01:56] LABS: Glucose,Whole Blood 226 mg/dL (75-99)
[2018-01-18] MEDS: ACETAMINOPHEN IV (For NPO) 1,000 MG in EMPTY BAG 1 BAG IVPB SCH (05:44)
[2018-01-18 05:59] VITALS: BP 122/80; PULSE 78; TEMP 97.7
[2018-01-18 07:03] LABS: Glucose,Whole Blood 217 mg/dL (75-99)
[2018-01-18] MEDS: INSULIN PUMP MEAL BOLUS 1 UNIT MISC MISCELLANE SCH (08:18)
[2018-01-18] MEDS: PANTOPRAZOLE 40 MG/10 ML VIAL IV SCH (08:18)
--- NOTE | 2018-01-18 08:59 | P.DS ---
Providers Date of admission: 01/16/18 10:13 Expected date of discharge: 01/18/18 Attending physician: Shirley Roberts Consults: 01/16/18 10:13 Consult Physician Stat Consulting Provider: Arlin Zhu Consult Reason/Comments: DKA Do you want consulting provider notified?: Yes 01/16/18 14:38 Consult Physician Urgent Consulting Provider: Alonzo Silvestre Consult Reason/Comments: DKA Do you want consulting provider notified?: Already Contacted Primary care physician: [facility] Course: This is 33 years old male with history of diabetes mellitus insulin-dependent presents to the emergency department with worsening nausea vomiting and abdominal pain. Patient reported that yesterday 10:00 he started having nausea followed by vomiting patient was vomiting solid food at the beginning but later he was vomiting water and was not able to keep anything down patient removed his insulin pump to avoid becoming hypoglycemic and his weakness got worse to the point where he came into the emergency department. Patient was having shivering but no official the fever. Patient denied any productive cough recent upper respiratory symptoms and denied any recent dysuria. Patient stated that he is competent with his medication since he was diagnosed 2 years ago with diabetes mellitus and has been on insulin pump and he said his numbers are all well controlled currently sister at the bedside was not able to provide any information and patient was lethargic and said that he lives with his who brought into the emergency department. Patient denied any history of gastroparesis, smoking, alcohol or drug abuse. Patient stated that his symptoms has improved this morning and feels that he is hungry at this point and asking for diet. Patient in the emergency department was found to have glucose above 1000 with possible anion gap and was started on insulin drip with the future monitor fluid resuscitation 01/17: Patient remains in the ICU. Blood sugars are in the 200s. Anion gap 17 and CO2 17. He is to continue on insulin drip. WBC is down to 20.4. He has been afebrile and hemodynamically stable. He denies abdominal pain, nausea or vomiting. He does state he is hungry. He is to start consistent carb diet. Patient follows with Dr. Oliveros, manager human resources. He is in the process of getting a new insulin pump. His will call and make an appointment as soon as possible to get back into see her. His last one was 2 weeks ago. 01/18: Patient is now back on his insulin pump. Blood sugars are running in the low 200s. He has met with surgical tech. Plan is to follow-up with Dr. Oliveros and device rep in the next few days. Patient denies nausea, vomiting, diarrhea. No abdominal pain. Patient will be discharged home today in stable condition. Discharge diagnoses: 1. DKA. 2. Nausea vomiting abdominal pain likely related to gastroenteritis precipitating DKA and malfunction of insulin pump. 3. Severe leukocytosis likely reactive. 4. Acute hyperkalemia secondary to acute kidney injury. 5. Severe dehydration and acute kidney injury. 6. Diabetes mellitus insulin pump dependent. 7. GERD 8. Peripheral neuropathy. 9. Vitamin D deficiency. Discharge plan: home Impression and plan of care have been directed as dictated by the signing physician. Taylor Price nurse practitioner acting as scribe for signing physician. Patient Condition at Discharge: Good Plan - Discharge Summary Discharge Rx Participant: No New Discharge Prescriptions: Continue Omeprazole [PriLOSEC] 20 mg PO AC-BRKFST Insulin Aspart (For Pump) [NovoLOG (For Pump)] 0.01 unit SQ-PUMP CONTINUOUS Cholecalciferol [Vitamin D3] 5,000 unit PO CEDILLO Multivitamins, Thera [Multivitamin (formulary)] 1 tab PO DAILY Gabapentin [Neurontin] 300 mg PO BID Ferrous Sulfate [Iron (65 MG Elemental)] 325 mg PO DAILY Discharge Medication List Cholecalciferol [Vitamin D3] 5,000 unit PO CEDILLO 01/16/18 [History] Ferrous Sulfate [Iron (65 MG Elemental)] 325 mg PO DAILY 01/16/18 [History] Gabapentin [Neurontin] 300 mg PO BID 01/16/18 [History] Insulin Aspart (For Pump) [NovoLOG (For Pump)] 0.01 unit SQ-PUMP CONTINUOUS 05/26 [History] Multivitamins, Thera [Multivitamin (formulary)] 1 tab PO DAILY 01/16/18 [History ] Omeprazole [PriLOSEC] 20 mg PO AC-BRKFST 01/16/18 [History] Follow up Appointment(s)/Referral(s): Jacobo Correa MD [Primary Care Provider] - 1 Week Huong Oliveros MD [STAFF PHYSICIAN] - 3 Days Discharge Disposition: HOME SELF-CARE
[2018-01-18 16:16] LABS: Hemoglobin A1C 8.6
== END 2018-01-18 09:40 | disposition home or self-care (01) | DRG 638 ==
LOC: EC 07:55 → 6ICU 10:13 → 4MS4W 01-17 18:41
PROVIDERS: ADMIT Internal Medicine; ATTEND Internal Medicine
DX: E10.10 Type 1 diabetes mellitus with ketoacidosis without coma (principal); N17.9 Acute kidney failure, unspecified; T85.694A Other mechanical complication of insulin pump, initial encounter; D64.9 Anemia, unspecified; D72.828 Other elevated white blood cell count; E55.9 Vitamin D deficiency, unspecified; E86.0 Dehydration; E86.1 Hypovolemia; E87.5 Hyperkalemia; E10.42 Type 1 diabetes mellitus with diabetic polyneuropathy; E10.65 Type 1 diabetes mellitus with hyperglycemia; Z96.41 Presence of insulin pump (external) (internal); Z79.4 Long term (current) use of insulin; J45.909 Unspecified asthma, uncomplicated; K21.9 Gastro-esophageal reflux disease without esophagitis; K52.9 Noninfective gastroenteritis and colitis, unspecified; Y74.2 Prosthetic and other implants, materials and accessory general hospital and personal-use devices associated with adverse incidents; Z79.899 Other long term (current) drug therapy; Z87.891 Personal history of nicotine dependence; Z88.0 Allergy status to penicillin; Z88.1 Allergy status to other antibiotic agents; Z91.010 Allergy to peanuts
CPT/HCPCS: 36415; 71045; 80048; 80051; 80053; 81001; 82009; 82150; 82565; 82947; 83036; 83690; 83735; 84100; 84520; 85025; 93005; 94640; 96361; 96374; 96375; 99291

== ENCOUNTER → 2018-05-03 | Outpatient (CLI) | payer OTHER ==
[2018-05-03 11:05] LABS: Basophils % (A) 1 %; Eosinophils # (A) 0.1 k/uL (0-0.7); Eosinophils % (A) 3 %; HCT 45.7 % (39.0-53.0); HGB 15.6 gm/dL (13.0-17.5); Lymphocytes # (A) 1.6 k/uL (1.0-4.8); Lymphocytes % (A) 36 %; MCH 29.7 pg (25.0-35.0); MCV 87.1 fL (80.0-100.0); Mean Platelet Volume 7.1; Monocytes # (A) 0.3 k/uL (0-1.0); Monocytes % (A) 7 %; Neutrophils # (A) 2.3 k/uL (1.3-7.7); Neutrophils % (A) 52 %; Platelet Count 158 k/uL (150-450); RBC 5.25 m/uL (4.30-5.90); RDW 12.7 % (11.5-15.5); WBC 4.4 k/uL (3.8-10.6)
[2018-05-03 11:33] LABS: ALT 20 U/L (21-72); AST 20 U/L (17-59); Albumin 3.9 g/dL (3.5-5.0); Alkaline Phosphatase 39 U/L (38-126); Anion Gap 5 mmol/L; Blood Urea Nitrogen 16 mg/dL (9-20); Calcium 8.9 mg/dL (8.4-10.2); Carbon Dioxide 29 mmol/L (22-30); Chloride 110 mmol/L (98-107); Cholesterol 148 mg/dL (<200); Glucose 136 mg/dL (74-99); HDL Cholesterol 43 mg/dL (40-60); LDL Cholesterol,Calculated 95 mg/dL (0-99); Potassium 4.7 mmol/L (3.5-5.1); Sodium 144 mmol/L (137-145); Total Bilirubin 1.4 mg/dL (0.2-1.3); Total Protein 6.4 g/dL (6.3-8.2); Triglycerides 51 mg/dL (<150)
[2018-05-03 11:48] LABS: T4, Free (Free Thyroxine) 1.25 ng/dL (0.78-2.19)
[2018-05-03 19:21] LABS: Hemoglobin A1C 8.5 % (4.0-6.0)
== END ==
LOC: LABWHC1 09:53
PROVIDERS: ATTEND Internal Medicine Geriatric Medicine
DX: D64.9 Anemia, unspecified (principal); E78.5 Hyperlipidemia, unspecified; E08.65 Diabetes mellitus due to underlying condition with hyperglycemia; G62.9 Polyneuropathy, unspecified
CPT/HCPCS: 36415; 80053; 80061; 82043; 82570; 83036; 84439; 84443; 85025

== ENCOUNTER → 2018-08-29 | Outpatient (CLI) | payer OTHER ==
[2018-08-29 17:33] LABS: Albumin 4.5 g/dL (3.80-4.90); Albumin/Globulin Ratio 2.81 (1.20-2.10); Anion Gap 10.5 mmol/L (4.00-12.00); Calcium 9.1 mg/dL (8.7-10.3); Carbon Dioxide 28.5 mmol/L (21.6-31.8); Globulin 1.6 g/dL (1.6-3.3); Potassium 4.5 mmol/L (3.5-5.5); Total Bilirubin 1.8 mg/dL (0.2-1.2); Total Protein 6.1 g/dL (6.2-8.2)
== END ==
LOC: LABWHC1 08:42
PROVIDERS: ATTEND Internal Medicine Endocrinology, Diabetes & Metabolism
DX: E10.65 Type 1 diabetes mellitus with hyperglycemia (principal)
CPT/HCPCS: 36415; 80053; 80061; 82043; 82570; 83036; 84443

== ENCOUNTER → 2019-04-27 | Outpatient (CLI) | payer OTHER ==
[2019-04-27 17:42] LABS: African American GFR (CKD) 126.9 (60.0-200.0); Albumin 4.4 g/dL (3.80-4.90); Albumin/Globulin Ratio 2.59 (1.60-3.17); Anion Gap 9.7 mmol/L (4.00-12.00); BUN/Creat Ratio 12.22 Ratio (12.00-20.00); Calcium 9.1 mg/dL (8.7-10.3); Carbon Dioxide 27.3 mmol/L (21.6-31.8); Chol/HDL Ratio 3.85; Globulin 1.7 g/dL (1.6-3.3); LDL Cholesterol,Calculated 97.8 mg/dL (0.0-131.0); Potassium 4.6 mmol/L (3.5-5.5); Total Bilirubin 1.4 mg/dL (0.2-1.2); Total Protein 6.1 g/dL (6.2-8.2); VLDL Calculation 16.2 mg/dL (5.00-40.00)
[2019-04-27 21:39] LABS: Hemoglobin A1C 7.6 % (4.0-6.0)
== END | disposition home or self-care (01) ==
LOC: LABWHC1 07:37
PROVIDERS: ATTEND Internal Medicine Endocrinology, Diabetes & Metabolism
DX: E10.65 Type 1 diabetes mellitus with hyperglycemia (principal)
CPT/HCPCS: 36415; 80053; 80061; 82043; 82570; 83036; 84443

== ENCOUNTER → 2019-08-28 | Outpatient (CLI) | payer OTHER ==
[2019-08-28 10:14] LABS: MCH 30.5 pg (25.0-35.0); MCHC 34.9 g/dL (31.0-37.0); MCV 87.4 fL (80.0-100.0); Mean Platelet Volume 7.2; Platelet Count 164 k/uL (150-450); RBC 4.92 m/uL (4.30-5.90); RDW 12.7 % (11.5-15.5); WBC 6.3 k/uL (3.8-10.6)
[2019-08-28 16:03] LABS: African American GFR (CKD) 126.9 (60.0-200.0); Albumin 4.2 g/dL (3.80-4.90); Albumin/Globulin Ratio 2.63 (1.60-3.17); Anion Gap 3.9 mmol/L (4.00-12.00); BUN/Creat Ratio 12.22 Ratio (12.00-20.00); Calcium 8.9 mg/dL (8.7-10.3); Carbon Dioxide 27.1 mmol/L (21.6-31.8); Chol/HDL Ratio 3.56; Globulin 1.6 g/dL (1.6-3.3); Non-African American GFR(CKD) 109.5 (60.0-200.0); Potassium 4.4 mmol/L (3.5-5.5); Total Bilirubin 1.1 mg/dL (0.2-1.2); Total Protein 5.8 g/dL (6.2-8.2)
[2019-08-28 17:40] LABS: Hemoglobin A1C 7.4 % (4.0-6.0)
== END | disposition home or self-care (01) ==
LOC: LABWHC1 09:27
PROVIDERS: ATTEND Internal Medicine Endocrinology, Diabetes & Metabolism
DX: E10.65 Type 1 diabetes mellitus with hyperglycemia (principal)
CPT/HCPCS: 36415; 80053; 80061; 82043; 82570; 83036; 84443; 85027

== ENCOUNTER → 2020-04-12 | Outpatient (CLI) | payer OTHER ==
[2020-04-12 17:24] LABS: BUN/Creat Ratio 17.78 Ratio (12.00-20.00); Chol/HDL Ratio 3.34; LDL Cholesterol,Calculated 73.6 mg/dL (0.0-131.0); Non-African American GFR(CKD) 108.7 (60.0-200.0); Potassium 5.2 mmol/L (3.5-5.5); Total Bilirubin 0.8 mg/dL (0.3-1.2); VLDL Calculation 22.4 mg/dL (5.00-40.00)
[2020-04-12 18:43] LABS: Hemoglobin A1C 7.6 % (4.0-6.0)
[2020-04-12 18:51] LABS: Urine Creatinine 104.4 mg/dL
== END | disposition home or self-care (01) ==
LOC: LABWHC1 07:24
PROVIDERS: ATTEND Internal Medicine Endocrinology, Diabetes & Metabolism
DX: E10.65 Type 1 diabetes mellitus with hyperglycemia (principal)
CPT/HCPCS: 36415; 80053; 80061; 82043; 82570; 83036; 84443

== ENCOUNTER → 2020-07-19 | Outpatient (CLI) | payer OTHER ==
[2020-07-19 08:14] LABS: HGB 16.5 gm/dL (13.0-17.5); MCH 30.5 pg (25.0-35.0); MCHC 34.4 g/dL (31.0-37.0); MCV 88.7 fL (80.0-100.0); Mean Platelet Volume 6.8; Platelet Count 184 k/uL (150-450); RBC 5.41 m/uL (4.30-5.90); RDW 12.7 % (11.5-15.5); WBC 5.5 k/uL (3.8-10.6)
[2020-07-19 10:58] LABS: African American GFR (CKD) 110.9 (60.0-200.0); Albumin 4.5 g/dL (3.80-4.90); Albumin/Globulin Ratio 2.25 (1.60-3.17); Anion Gap 4.3 mmol/L (4.00-12.00); Calcium 9.3 mg/dL (8.7-10.3); Carbon Dioxide 26.7 mmol/L (21.6-31.8); Chol/HDL Ratio 3.37; LDL Cholesterol,Calculated 101.4 mg/dL (0.0-131.0); Non-African American GFR(CKD) 95.7 (60.0-200.0); Potassium 5.4 mmol/L (3.5-5.5); Total Bilirubin 1.9 mg/dL (0.3-1.2); Total Protein 6.5 g/dL (6.2-8.2); VLDL Calculation 14.6 mg/dL (5.00-40.00)
[2020-07-19 11:20] LABS: Microalbumin Creatinine Ratio <30 mg/g Creat (0-30); Urine Creatinine 77.6 mg/dL
[2020-07-19 15:51] LABS: Hemoglobin A1C 7.5 % (4.0-6.0)
== END | disposition home or self-care (01) ==
LOC: LABWHC1 07:20
PROVIDERS: ATTEND Internal Medicine Endocrinology, Diabetes & Metabolism
DX: E10.65 Type 1 diabetes mellitus with hyperglycemia (principal)
CPT/HCPCS: 36415; 80053; 80061; 82043; 82570; 83036; 85027

== ENCOUNTER → 2021-04-03 | Outpatient (CLI) | payer OTHER ==
[2021-04-03 12:49] LABS: African American GFR (CKD) 110.2 (60.0-200.0); Albumin 4.5 g/dL (3.80-4.90); Albumin/Globulin Ratio 1.96 (1.60-3.17); Anion Gap 8.4 mmol/L (4.00-12.00); Calcium 9.2 mg/dL (8.7-10.3); Carbon Dioxide 25.6 mmol/L (21.6-31.8); Chol/HDL Ratio 3.26; Globulin 2.3 g/dL (1.6-3.3); LDL Cholesterol,Calculated 85.4 mg/dL (0.0-131.0); Non-African American GFR(CKD) 95.1 (60.0-200.0); Potassium 4.8 mmol/L (3.5-5.5); Total Bilirubin 1.7 mg/dL (0.3-1.2); Total Protein 6.8 g/dL (6.2-8.2); VLDL Calculation 18.6 mg/dL (5.00-40.00)
[2021-04-03 14:46] LABS: Hemoglobin A1C 7.9 % (4.0-6.0)
[2021-04-03 20:10] LABS: Microalbumin Creatinine Ratio <30 mg/g Creat (0-30)
== END | disposition home or self-care (01) ==
LOC: LABWHC1 07:03
PROVIDERS: ATTEND Internal Medicine Endocrinology, Diabetes & Metabolism
DX: E10.65 Type 1 diabetes mellitus with hyperglycemia (principal); E55.9 Vitamin D deficiency, unspecified
CPT/HCPCS: 36415; 80053; 80061; 82043; 82306; 82570; 82607; 83036; 84443

== ENCOUNTER → 2022-05-09 | Outpatient (CLI) | payer OTHER ==
[2022-05-09 11:52] LABS: ALT 20 U/L (10-49); AST 20 U/L (14-35); African American GFR (CKD) 120.7 (60.0-200.0); Albumin 4.4 g/dL (3.8-4.9); Albumin/Globulin Ratio 2.15 (1.60-3.17); Alkaline Phosphatase 60 U/L (41-126); BUN/Creat Ratio 13.67 Ratio (12.00-20.00); Blood Urea Nitrogen 12.6 mg/dL (9.0-27.0); Carbon Dioxide 27.4 mmol/L (20.0-27.5); Chloride 105 mmol/L (96-109); Chol/HDL Ratio 3.91 Ratio; Glucose 157 mg/dL (70-110); LDL Cholesterol,Calculated 104.1 mg/dL (0.0-131.0); Non-African American GFR(CKD) 104.1 (60.0-200.0); Potassium 4.8 mmol/L (3.5-5.5); Sodium 142 mmol/L (135-145); Total Protein 6.4 g/dL (6.2-8.2)
== END | disposition home or self-care (01) ==
LOC: LABWHC1 07:58
PROVIDERS: ATTEND Internal Medicine Endocrinology, Diabetes & Metabolism
DX: E10.65 Type 1 diabetes mellitus with hyperglycemia (principal)
CPT/HCPCS: 36415; 80053; 80061; 83036; 84443

== ENCOUNTER → 2022-11-07 | Outpatient (CLI) | payer OTHER ==
[2022-11-07 11:36] LABS: ALT 22 U/L (10-49); AST 17 U/L (14-35); African American GFR (CKD) 118.2 (60.0-200.0); Albumin 4.7 g/dL (3.8-4.9); Albumin/Globulin Ratio 2.15 (1.60-3.17); Alkaline Phosphatase 60 U/L (41-126); Blood Urea Nitrogen 15.1 mg/dL (9.0-27.0); Calcium 9.5 mg/dL (8.7-10.3); Carbon Dioxide 29.4 mmol/L (20.0-27.5); Chloride 104 mmol/L (96-109); Chol/HDL Ratio 2.86 Ratio; Globulin 2.2 g/dL (1.6-3.3); Glucose 182 mg/dL (70-110); LDL Cholesterol,Calculated 71.6 mg/dL (0.0-131.0); Microalbumin Creatinine Ratio <30 mg/g Creat (0-30); Potassium 4.6 mmol/L (3.5-5.5); Sodium 143 mmol/L (135-145); Total Protein 6.8 g/dL (6.2-8.2); Urine Creatinine 64.8 mg/dL (39.0-259.0); VLDL Calculation 12.28 mg/dL (5.00-40.00)
== END | disposition home or self-care (01) ==
LOC: LABWHC1 08:05
PROVIDERS: ATTEND Internal Medicine Endocrinology, Diabetes & Metabolism
DX: E10.65 Type 1 diabetes mellitus with hyperglycemia (principal)
CPT/HCPCS: 36415; 80053; 80061; 82043; 82570; 83036; 84443

== ENCOUNTER → 2023-09-25 | Outpatient (CLI) | payer OTHER ==
[2023-09-25 13:51] LABS: ALT 25 U/L (10-49); AST 18 U/L (14-35); Albumin 4.7 g/dL (3.8-4.9); Albumin/Globulin Ratio 2.14 Ratio (1.60-3.17); Alkaline Phosphatase 61 U/L (41-126); BUN/Creat Ratio 15.89 Ratio (12.00-20.00); Blood Urea Nitrogen 14.3 mg/dL (9.0-27.0); Calcium 9.4 mg/dL (8.7-10.3); Carbon Dioxide 26.5 mmol/L (21.6-31.8); Chloride 105 mmol/L (96-109); Chol/HDL Ratio 2.96 Ratio; Globulin 2.2 g/dL (1.6-3.3); Glucose 144 mg/dL (70-110); LDL Cholesterol,Calculated 79.8 mg/dL (0.0-131.0); Potassium 4.7 mmol/L (3.5-5.5); Sodium 141 mmol/L (135-145); Total Protein 6.9 g/dL (6.2-8.2); VLDL Calculation 14.88 mg/dL (5.00-40.00)
[2023-09-25 21:29] LABS: Microalbumin Creatinine Ratio <7 mg/g Cr (0-30)
== END | disposition home or self-care (01) ==
LOC: LABWHC1 07:54
PROVIDERS: ATTEND Internal Medicine Endocrinology, Diabetes & Metabolism
DX: E10.65 Type 1 diabetes mellitus with hyperglycemia (principal)
CPT/HCPCS: 36415; 80053; 80061; 82043; 82570; 83036; 84443

== ENCOUNTER 2024-08-08 08:30 | Day surgery (SDC) | payer OTHER ==
[~2024-08-08 08:30] MED LIST: LACTATED RINGERS 1,000 ML IV SCH; LIDOCAINE 1% (10MG/ML) FOR IV START INTRADERMA PRN
[2024-08-08] MEDS: IV FLUID CONTINUATION 1,000 ML IV ONE (09:02)
[2024-08-08 09:08] VITALS: TEMP 97.1
[2024-08-08 09:11] LABS: Glucose,Whole Blood 179 mg/dL (70-110)
[2024-08-08] MEDS ORDERED: PROPOFOL 10 MG/ML 20 ML VIAL IV ONE (09:32)
[2024-08-08] MEDS ORDERED: LIDOCAINE 2% (PF) 20 MG/ML 5 ML VIAL ONE (09:32)
--- NOTE | 2024-08-08 09:55 | P.PCN ---
Date of Procedure: 08/08/24 Procedure(s) Performed: Brief history: Patient is a pleasant 39-year-old white male scheduled for an elective upper endoscopy as well as colonoscopy as a part of evaluation of symptoms of GERD and screening for colon cancer. His grandmother was diagnosed with colon cancer at age 50. Procedure performed: Esophagogastroduodenoscopy with biopsy Colonoscopy Preoperative diagnosis: GERD Screening for colon cancer and family history of colon cancer Anesthesia: MAC Procedure: After informed consent was obtained from the patient was brought into the endoscopy unit and IV sedation was administered by anesthesia under continuous monitoring. Initially upper endoscopy was done. The Olympus GF 160 video endoscope was inserted inserted into the mouth and esophagus intubated without any difficulty and was gradually advanced into the stomach and duodenum and carefully examined. The bulb and second part of the duodenum appeared normal. The scope was then withdrawn into the stomach adequately insufflated with air and upon careful examination the antrum had linear areas of edema consistent with gastritis and biopsies were done from this area. Mucosa of the body, cardia and fundus appeared normal. The scope was then withdrawn into the esophagus. The GE junction was located at 40 cm to the incisors. It appeared irregular with 3 mm tongue of Espinal's appearing mucosa which was biopsied.. Rest of the esophagus appeared normal. Patient tolerated the procedure well. At this time the patient continued to remain sedation. Initial digital rectal examination was normal. Olympus CF 160 video colonoscope was then inserted into the rectum and gradually advanced to the cecum without any difficulty. Careful examination was performed as the scope was gradually being withdrawn. The prep was excellent. The cecum, ascending colon, transverse colon, descending colon, sigmoid colon and rectum appeared normal. Retroflexion was performed in the rectum and no lesions were noted. Patient tolerated the procedure well. Impression: 1. 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 Colonoscopy was within normal limits with no evidence of colorectal neoplasia Recommendations: Findings of this examination were discussed with the patient as well as his family. He was advised to continue with omeprazole 20 mg daily and follow antireflux measures. If the biopsy confirms the presence of Espinal's esophagus, recommend a repeat upper endoscopy in 3 years. Recommend repeat colonoscopy in 10 years.
[2024-08-08 10:19] VITALS: BP 134/91; PULSE 82; RESP 18
== END 2024-08-08 10:41 | disposition home or self-care (01) ==
LOC: ORWHC2ENDO 08:30
PROVIDERS: ATTEND Internal Medicine Gastroenterology
DX: Z12.11 Encounter for screening for malignant neoplasm of colon (principal); K22.70 Barrett's esophagus without dysplasia; K29.70 Gastritis, unspecified, without bleeding; K21.9 Gastro-esophageal reflux disease without esophagitis; I10 Essential (primary) hypertension; E11.40 Type 2 diabetes mellitus with diabetic neuropathy, unspecified; Z96.41 Presence of insulin pump (external) (internal); E78.5 Hyperlipidemia, unspecified; J45.909 Unspecified asthma, uncomplicated; Z79.899 Other long term (current) drug therapy; Z88.0 Allergy status to penicillin; Z88.1 Allergy status to other antibiotic agents; Z91.010 Allergy to peanuts; Z80.0 Family history of malignant neoplasm of digestive organs
CPT/HCPCS: 43239; J2704; J2003; G0105; 88305

== ENCOUNTER → 2024-10-16 | Outpatient (CLI) | payer OTHER ==
[2024-10-16 15:32] LABS: ALT 35 U/L (10-49); AST 28 U/L (14-35); Albumin 4.5 g/dL (3.8-4.9); Albumin/Globulin Ratio 2.05 Ratio (1.60-3.17); Alkaline Phosphatase 61 U/L (41-126); BUN/Creat Ratio 14.56 Ratio (12.00-20.00); Blood Urea Nitrogen 13.1 mg/dL (9.0-27.0); Calcium 9.1 mg/dL (8.7-10.3); Carbon Dioxide 25.7 mmol/L (21.6-31.8); Chloride 103 mmol/L (96-109); Chol/HDL Ratio 3.04 Ratio; Globulin 2.2 g/dL (1.6-3.3); Glucose 239 mg/dL (70-110); LDL Cholesterol,Calculated 71.4 mg/dL (0.0-131.0); Potassium 4.8 mmol/L (3.5-5.5); Sodium 140 mmol/L (135-145); Total Bilirubin 1.5 mg/dL (0.3-1.2); Total Protein 6.7 g/dL (6.2-8.2); VLDL Calculation 15.22 mg/dL (5.00-40.00)
[2024-10-16 19:29] LABS: Microalbumin Creatinine Ratio <10 mg/g Cr (0-30)
== END | disposition home or self-care (01) ==
LOC: LABWHC1 08:53
PROVIDERS: ATTEND Internal Medicine Endocrinology, Diabetes & Metabolism
DX: E10.65 Type 1 diabetes mellitus with hyperglycemia (principal)
CPT/HCPCS: 36415; 80053; 80061; 82043; 82570; 83036; 84443